=== PATIENT | male | born 1985 | race Caucasian/White ===

== ENCOUNTER 2017-12-11 11:26 | Emergency (ER) | payer MEDICARE ==
[~2017-12-11] VITALS: Ht 177.8 cm; Wt 70.3 kg
[~2017-12-11 11:26] MED LIST: ANTIBIOTICS; BENADRYL25 MG PO; Bactrim Ds Tab1 EACH PO; CIPR250 PO; CLIN150 PO; CRUTCH2 XX; CYCL10 PO; DIPATR PO; IBUP800 PO; INS70/30PN SC; INSDET100 SC; INSDET100 SQ; INSUASPI SC; INSULANI SC; LEVFLO500 PO; LEVO750 PO; MELO7.5 PO; Mobic15 MG PO; Norco 5-325 Ta1 EACH PO; PENVK500 PO; PREG150 PO; Pepcid20 MG PO; Percocet 10-321 EACH PO; REGULAR INSULIN SS; SULTRIDS PO; TRAM50 PO; TRAZ50 PO; ULTRA-LIGHT RO1 EACH MC; Veetids 500500 MG PO; Zofran Odt8 MG SL
== END 2017-12-11 13:15 | disposition home or self-care (01) ==
LOC: ER 11:26
DX: S93.401A Sprain of unspecified ligament of right ankle, initial encounter (principal); E11.9 Type 2 diabetes mellitus without complications; Z88.8 Allergy status to other drugs, medicaments and biological substances; Z88.1 Allergy status to other antibiotic agents; Z79.899 Other long term (current) drug therapy; Z79.4 Long term (current) use of insulin; Z87.891 Personal history of nicotine dependence; V80.010A Animal-rider injured by fall from or being thrown from horse in noncollision accident, initial encounter
CPT/HCPCS: 73564; 73610; 73630; 99283

== ENCOUNTER 2019-04-18 18:14 | Inpatient (IN) | payer MEDICARE ==
[~2019-04-18] VITALS: Ht 177.8 cm; Wt 73.8 kg
[2019-04-18 18:51] LABS: BASOPHILS ABSOLUTE AUTO 0.01 K/mm3 (0.00-0.23); BASOPHILS PERCENT AUTO 0 % (0-2); EOSINOPHILS ABSOLUTE AUTO 0.06 K/mm3 (0.00-0.68); EOSINOPHILS PERCENT AUTO 1 % (0-6); Hematocrit 42.4 % (37.0-53.0); Hemoglobin 14.3 g/dL (13.5-17.5); IMMATURE GRAN ABSOLUTE AUTO 0.03 K/mm3 (0.00-0.10); IMMATURE GRAN PERCENT AUTO 0 % (0-1); LYMPHOCYTES ABSOLUTE AUTO 2.01 K/mm3 (0.84-5.20); LYMPHOCYTES PERCENT AUTO 16 % (21-46); MONOCYTES ABSOLUTE AUTO 0.97 K/mm3 (0.16-1.47); MONOCYTES PERCENT AUTO 8 % (4-13); Mean Corpuscular HGB 29.5 pg (26.0-34.0); Mean Corpuscular HGB Conc 33.7 g/dL (31.5-36.5); Mean Corpuscular Volume 88 fL (80-100); Mean Platelet Volume 9.6 fL (9.1-12.4); NEUTROPHILS ABSOLUTE AUTO 9.64 K/mm3 (1.96-9.15); NEUTROPHILS PERCENT AUTO 76 % (41-73); Platelet Count 295 K/mm3 (150-400); RDW Coefficient Variation 13.3 % (11.7-14.2); RDW Standard Deviation 42.5 fL (35.1-46.3); Red Blood Cell Count 4.84 M/mm3 (4.30-5.90); White Blood Cell Count 12.72 K/mm3 (4.00-11.30)
[2019-04-18 19:13] LABS: Alanine Aminotransfer (ALT/SGP 25 U/L (12-78); Albumin, Blood 3.8 g/dL (3.4-5.0); Alk Phos 127 U/L (50-136); Anion Gap 6 mmol/L (6-16); Aspartate Aminotrans (AST/SGOT 11 U/L (12-37); Bilirubin, Total 0.4 mg/dL (0.1-1.0); Blood Urea Nitrogen 13 mg/dL (8-24); Bun/Creatinine Ratio 16.9 (12.0-20.0); CO2, Blood 30 mmol/L (21-32); Calcium, Blood 8.9 mg/dL (8.5-10.1); Chloride, Blood 102 mmol/L (98-108); Creatinine, Blood 0.77 mg/dL (0.60-1.20); Globulin, Blood 3.9 g/dL (2.2-4.0); Glomerular Filtration Rate >60 (60-); Glucose, Blood 49 mg/dL (70-99); Potassium, Blood 3.5 mmol/L (3.5-5.5); Sodium, Blood 138 mmol/L (136-145); Total Protein, Blood 7.7 g/dL (6.4-8.2)
[2019-04-18] MEDS ORDERED: GABA300 PO (21:57)
[2019-04-18] MEDS ORDERED: BUPRENORPHINE HC2 MG SL (21:59)
[2019-04-18] MEDS ORDERED: LEVEMIR FL100 UNIT/1 SC (22:00)
[2019-04-18] MEDS ORDERED: Humalog100 UNIT/3 SC (22:01)
[2019-04-19] MEDS ORDERED: ABAT250V (00:04)
[2019-04-19] MEDS ORDERED: Colace100 MG PO (00:04)
[2019-04-19 05:17] LABS: BASOPHILS PERCENT AUTO 0 % (0-2); EOSINOPHILS ABSOLUTE AUTO 0.16 K/mm3 (0.00-0.68); EOSINOPHILS PERCENT AUTO 2 % (0-6); Hematocrit 37.4 % (37.0-53.0); Hemoglobin 12.5 g/dL (13.5-17.5); IMMATURE GRAN ABSOLUTE AUTO 0.02 K/mm3 (0.00-0.10); IMMATURE GRAN PERCENT AUTO 0 % (0-1); LYMPHOCYTES ABSOLUTE AUTO 2.25 K/mm3 (0.84-5.20); LYMPHOCYTES PERCENT AUTO 27 % (21-46); MONOCYTES ABSOLUTE AUTO 0.77 K/mm3 (0.16-1.47); MONOCYTES PERCENT AUTO 9 % (4-13); Mean Corpuscular HGB 29.5 pg (26.0-34.0); Mean Corpuscular HGB Conc 33.4 g/dL (31.5-36.5); Mean Corpuscular Volume 88 fL (80-100); NEUTROPHILS ABSOLUTE AUTO 5.22 K/mm3 (1.96-9.15); NEUTROPHILS PERCENT AUTO 62 % (41-73); Platelet Count 258 K/mm3 (150-400); RDW Coefficient Variation 13.4 % (11.7-14.2); RDW Standard Deviation 43.5 fL (35.1-46.3); Red Blood Cell Count 4.24 M/mm3 (4.30-5.90); White Blood Cell Count 8.42 K/mm3 (4.00-11.30)
[2019-04-19 05:30] LABS: International Normalized Ratio 0.92; Prothrombin Time Results 9.8 Sec (9.7-11.5)
[2019-04-19 05:35] LABS: Anion Gap 5 mmol/L (6-16); Blood Urea Nitrogen 12 mg/dL (8-24); Bun/Creatinine Ratio 19.2 (12.0-20.0); CO2, Blood 28 mmol/L (21-32); Chloride, Blood 108 mmol/L (98-108); Creatinine, Blood 0.63 mg/dL (0.60-1.20); Glomerular Filtration Rate >60 (60-); Glucose, Blood 228 mg/dL (70-99); Magnesium, Blood 2.1 mg/dL (1.6-2.4); Potassium, Blood 3.8 mmol/L (3.5-5.5); Sodium, Blood 141 mmol/L (136-145)
--- NOTE | 2019-04-19 06:52 | NUR ---
SHIFT SUMMARY PT WAS A NEW ADMIT DURING THE NIGHT, ARRIVING ON THE FLOOR AT 2320. HE WAS ADMITTED FOR SEPSIS R/T CELLULITIS AND POSSIBLE ABSCESS. HE IS A&O X 4, AND INDEPENDENT IN THE ROOM. PT HAS BEEN NPO SINCE MIDNIGHT IN PREP FOR A SURGICAL I&D TODAY. HE DENIED ANY COMPLAINTS OF ACUTE PAIN, NAUSEA OR SOB AND SLEPT WELL SINCE ADMISSION. VITALS STABLE. NO OTHER ACUTE CHANGES IN PT CONDITION NOTED. WILL CONTINUE TO MONITOR AND TREAT PER EMAR UNTIL HAND OFF TO DAY SHIFT.
--- NOTE | 2019-04-19 13:00 | NUR ---
HAS BEEN NPO ALL DAY. AMBULATED OUTSIDE X1 TO USE HIS E-CIGARETTE. AMB THE HALLS X1. SHOWERED. HE WANTED 2 UNITS HUMALOG INSTEAD OF 3 UNITS FOR HIS NOONISH CBG. 2 UNITS GIVEN. TO SURGERY AT 1300 VIA [facility].
[2019-04-19 13:35] LABS: Vancomycin, Trough 10.9 ug/mL (5.0-10.0)
--- NOTE | 2019-04-19 13:35 | NUR ---
PT INTO SDS VIA GURNEY FROM 329. History, Chart, Medications and Allergies reviewed before start of procedure.Patient confirms NPO status and agrees with scheduled surgery. Lungs clear T/O to Auscultation.
--- NOTE | 2019-04-19 18:34 | NUR ---
HE RETURNED FROM SURGERY VIA [facility] AT 1535. HE IS A&O. HE IS AMBULATORY. HE HAS BILATERAL SMALL PAVAN DRAINS IN HIS SURGICAL WOUNDS. HE CONTINUES ON IVF'S AND IV ANTIBIOTICS. NO FEVER. POST OP VSS. HIS FRIEND BROUGHT HIM DINNER. LAST CBG OVER 300. ERIN FLYNN NOTIFIED. LANTUS INSULIN ORDERED SAME DOSE HE TAKE LEVEMIR AT HOME. DRESSINGS CHANGED X1 SO FAR OVER PAVAN DRAINS. OLD DRESSINGS WERE BLOODY. NO C/O PAIN.
--- NOTE | 2019-04-19 23:18 | NUR ---
ELEVATED BLOOD SUGAR AT HS CHECK AT 2127, PT'S BLOOD SUGAR WAS 482. THE HOSPITALIST JOHN SCHULER WAS CONSULTED. PT WAS GIVEN HIS NORMAL HOME DOSE OF 50 UNITS OF LANTUS, AND HIS SLIDING SCALE HUMALOG WAS INCREASED TO A HIGH SLIDING SCALE AND HE WAS MEDICATED PER THAT SCALE. WILL RECHECK BLOOD SUGAR 1 HR AFTER INSULIN COVERAGE.
--- NOTE | 2019-04-20 06:41 | NUR ---
SHIFT SUMMARY PT IS A 33 Y/O MALE, ADMITTED FOR SEPSIS R/T AN ABCESS AND CELLULITIS ON HIS THIGHS AND GENITALS. PT HAD A SURGICAL I&D YESTERDAY, WITH PAVAN DRAINS CURRENTLY IN PLACE. VITAL SIGNS STABLE. PT DENIED ANY COMPLAINTS OF PAIN, NAUSEA OR SOB. VITALS STABLE. NO OTHER ACUTE CHANGES IN PT CONDITION NOTED. WILL CONTINUE TO MONITOR AND TREAT PER EMAR UNTIL HAND OFF TO DAY SHIFT.
--- NOTE | 2019-04-20 10:05 | NUR ---
GLUCOSE OF 51 GAVE APPLEJUICE, FOLLOWED BY BREAKFAST. HELD INSULIN.
--- NOTE | 2019-04-20 10:07 | NUR ---
CALLED DR. JACKSON HOSPITALIST REQUESTED I CALL DR. JACKSON TO VERIFY PT COULD BE DISCHARGED TODAY. DR. JACKSON CONFIRMED THAT THE PT COULD BE DISCHARGED TODAY. PT NEEDS TO FOLLOW UP WITH DR. JACKSON IN ONE WEEK.
[2019-04-20] MEDS ORDERED: ACET325 PO (10:54)
[2019-04-20] MEDS ORDERED: AMOCLA875 PO (10:57)
[2019-04-20] MEDS ORDERED: LACT PO (10:58)
--- NOTE | 2019-04-20 12:22 | NUR ---
DISCHARGE NOTE IV'S DC'D WNL. PT GIVEN NOON INFUSION OF ANTIBIOTIC BEFORE DISCHARGE. PT PROVIDED WITH VERBAL AND HARDCOPY INSTRUCTIONS FOR DC RE: DIAGNOSES, SELF CARE OF DRAINS, DISCHARGE MEDICATIONS, FOLLOW UP APPOINTMENTS. PT DRESSED HIMSELF IN PERSONAL CLOTHES, GATHERED HIS PERSONAL POSSESSIONS. HE ATE LUNCH AND THEN INDEPENDENTLY AMBULATED TO HIS PERSONAL VEHICLE.
== END 2019-04-20 12:31 | disposition home or self-care (01) | DRG 872 ==
LOC: ER 18:14 → MEDS 22:15 → ENPENDDIS 04-20 10:31 → MEDS 04-20 12:31
PROVIDERS: Nurse Practitioner Acute Care; Physician Assistant; Surgery; ADMIT Internal Medicine
PROC: 0W9M30Z Drainage of Male Perineum with Drainage Device, Percutaneous Approach (ICD-10-PCS; principal; 2019-04-19 13:30)
DX: A41.9 Sepsis, unspecified organism (principal); L03.315 Cellulitis of perineum; E10.649 Type 1 diabetes mellitus with hypoglycemia without coma; E10.40 Type 1 diabetes mellitus with diabetic neuropathy, unspecified; Z79.4 Long term (current) use of insulin; Z88.8 Allergy status to other drugs, medicaments and biological substances; S34.102D Unspecified injury to L2 level of lumbar spinal cord, subsequent encounter
CPT/HCPCS: 36415; 72193; 80048; 80053; 80202; 82947; 83605; 83735; 85025; 85610; 96365-59; 96367-59; 99284-25; J1200; J1885; J2250; J2405; J2543; J2704; J3010; J3370; J3480; J7030; J7120; Q9967

== ENCOUNTER 2020-07-24 14:59 | Emergency (ER) | payer MEDICARE, OTHER ==
[~2020-07-24] VITALS: Ht 177.8 cm; Wt 74.8 kg
[~2020-07-24 14:59] MED LIST changes: +ABAT250V; +ACET325 PO; +AMOCLA875 PO; +BUPRENORPHINE HC2 MG SL; +Colace100 MG PO; +GABA300 PO; +Humalog100 UNIT/3 SC; +LACT PO; +LEVEMIR FL100 UNIT/1 SC
== END 2020-07-24 17:02 | disposition home or self-care (01) ==
LOC: ER 14:59
DX: S20.212A Contusion of left front wall of thorax, initial encounter (principal); S49.92XA Unspecified injury of left shoulder and upper arm, initial encounter; E11.9 Type 2 diabetes mellitus without complications; F17.290 Nicotine dependence, other tobacco product, uncomplicated; Z88.1 Allergy status to other antibiotic agents; Z79.4 Long term (current) use of insulin; Z79.899 Other long term (current) drug therapy; V80.010A Animal-rider injured by fall from or being thrown from horse in noncollision accident, initial encounter
CPT/HCPCS: 71101; 73030; 99283-25

== ENCOUNTER 2021-05-22 12:04 | Emergency (ER) | payer MEDICARE, OTHER ==
[~2021-05-22] VITALS: Ht 177.8 cm; Wt 74.8 kg
[2021-05-22 13:49] LABS: Hematocrit 38.1 % (37.0-53.0); Mean Corpuscular HGB 31.4 pg (26.0-34.0); Mean Corpuscular HGB Conc 34.1 g/dL (31.5-36.5); Mean Corpuscular Volume 92 fL (80-100); Mean Platelet Volume 9.6 fL (9.1-12.4); Platelet Count 332 K/mm3 (150-400); RDW Coefficient Variation 12.2 % (11.7-14.2); RDW Standard Deviation 41.3 fL (35.1-46.3); Red Blood Cell Count 4.14 M/mm3 (4.30-5.90); White Blood Cell Count 4.67 K/mm3 (4.00-11.30)
[2021-05-22 14:10] LABS: Alanine Aminotransfer (ALT/SGP 33 U/L (12-78); Albumin, Blood 2.7 g/dL (3.4-5.0); Albumin/Globulin Ratio 0.7 (0.8-1.8); Alk Phos 116 U/L (50-136); Anion Gap 7 mmol/L (6-16); Aspartate Aminotrans (AST/SGOT 18 U/L (12-37); Bilirubin, Total 0.2 mg/dL (0.1-1.0); Blood Urea Nitrogen 12 mg/dL (8-24); Bun/Creatinine Ratio 17.7 (12.0-20.0); CO2, Blood 28 mmol/L (21-32); Calcium, Blood 8.1 mg/dL (8.5-10.1); Chloride, Blood 101 mmol/L (98-108); Creatinine, Blood 0.68 mg/dL (0.60-1.20); Globulin, Blood 4.1 g/dL (2.2-4.0); Glomerular Filtration Rate >60 (60-); Glucose, Blood 450 mg/dL (70-99); Potassium, Blood 3.9 mmol/L (3.5-5.5); Sodium, Blood 136 mmol/L (136-145); Total Protein, Blood 6.8 g/dL (6.4-8.2)
[2021-05-22 14:11] LABS: BAND PERCENT MAN 2 % (0-8); BASOPHILS ABSOLUTE MAN 0.09 K/mm3 (0.00-0.23); BASOPHILS PERCENT MAN 2 % (0-2); EOSINOPHILS ABSOLUTE MAN 0.04 K/mm3 (0.00-0.68); EOSINOPHILS PERCENT MAN 1 % (0-6); LYMPHOCYTES % ATYPICAL MANUAL 1 % (0-0); LYMPHOCYTES ABSOLUTE MAN 0.98 K/mm3 (0.84-5.20); LYMPHOCYTES PERCENT MAN 20 % (21-46); MONOCYTES ABSOLUTE MAN 0.32 K/mm3 (0.16-1.47); MONOCYTES PERCENT MAN 7 % (4-13); NEUTROPHILS ABSOLUTE MAN 3.22 K/mm3 (1.96-9.15); SEG NEUTROPHILS PERCENT MAN 67 % (41-73); TOTAL CELLS COUNTED 100
[2021-05-22] MEDS ORDERED: Cleocin HCl150 MG PO (14:20)
== END 2021-05-22 14:46 | disposition home or self-care (01) ==
LOC: ER 12:04
PROVIDERS: Physician Assistant
DX: L02.31 Cutaneous abscess of buttock (principal); L03.317 Cellulitis of buttock; L89.329 Pressure ulcer of left buttock, unspecified stage; E11.621 Type 2 diabetes mellitus with foot ulcer; E11.40 Type 2 diabetes mellitus with diabetic neuropathy, unspecified; L97.519 Non-pressure chronic ulcer of other part of right foot with unspecified severity; Z79.4 Long term (current) use of insulin; Z79.899 Other long term (current) drug therapy; Z88.1 Allergy status to other antibiotic agents
CPT/HCPCS: 36415; 80053; 85025; 96365; 99283-25

== ENCOUNTER 2021-10-28 17:45 | Inpatient (IN) | payer MEDICARE, OTHER ==
[~2021-10-28] VITALS: Ht 177.8 cm; Wt 74.1 kg
[~2021-10-28 17:45] MED LIST changes: +BUTRANS1 EAC6 TD; +CEFD300 PO; +Cleocin HCl150 MG PO; +DULO60 PO
[2021-10-28 18:58] LABS: BASOPHILS ABSOLUTE AUTO 0.04 K/mm3 (0.00-0.23); BASOPHILS PERCENT AUTO 0 % (0-2); EOSINOPHILS PERCENT AUTO 2 % (0-6); Hematocrit 32.1 % (37.0-53.0); IMMATURE GRAN ABSOLUTE AUTO 0.04 K/mm3 (0.00-0.10); IMMATURE GRAN PERCENT AUTO 0 % (0-1); LYMPHOCYTES ABSOLUTE AUTO 2.22 K/mm3 (0.84-5.20); LYMPHOCYTES PERCENT AUTO 22 % (21-46); MONOCYTES ABSOLUTE AUTO 0.88 K/mm3 (0.16-1.47); MONOCYTES PERCENT AUTO 9 % (4-13); Mean Corpuscular HGB 28.1 pg (26.0-34.0); Mean Corpuscular HGB Conc 31.2 g/dL (31.5-36.5); Mean Corpuscular Volume 90 fL (80-100); Mean Platelet Volume 8.9 fL (9.1-12.4); NEUTROPHILS PERCENT AUTO 66 % (41-73); Platelet Count 645 K/mm3 (150-400); RDW Coefficient Variation 13.8 % (11.7-14.2); RDW Standard Deviation 45.7 fL (35.1-46.3); Red Blood Cell Count 3.56 M/mm3 (4.30-5.90); White Blood Cell Count 9.98 K/mm3 (4.00-11.30)
[2021-10-28 19:08] LABS: Alanine Aminotransfer (ALT/SGP 17 U/L (12-78); Albumin, Blood 2.3 g/dL (3.4-5.0); Albumin/Globulin Ratio 0.6 (0.8-1.8); Alk Phos 124 U/L (50-136); Anion Gap 7 mmol/L (6-16); Aspartate Aminotrans (AST/SGOT 9 U/L (12-37); Bilirubin, Total 0.3 mg/dL (0.1-1.0); Blood Urea Nitrogen 7 mg/dL (8-24); Bun/Creatinine Ratio 9.9 (12.0-20.0); CO2, Blood 29 mmol/L (21-32); Calcium, Blood 8.3 mg/dL (8.5-10.1); Chloride, Blood 103 mmol/L (98-108); Creatinine, Blood 0.71 mg/dL (0.60-1.20); Glomerular Filtration Rate >60 (60-); Glucose, Blood 317 mg/dL (70-99); Potassium, Blood 4.6 mmol/L (3.5-5.5); Sodium, Blood 139 mmol/L (136-145); Total Protein, Blood 6.3 g/dL (6.4-8.2)
[2021-10-29 05:22] LABS: BASOPHILS ABSOLUTE AUTO 0.05 K/mm3 (0.00-0.23); BASOPHILS PERCENT AUTO 1 % (0-2); EOSINOPHILS ABSOLUTE AUTO 0.27 K/mm3 (0.00-0.68); EOSINOPHILS PERCENT AUTO 4 % (0-6); Hematocrit 30.2 % (37.0-53.0); Hemoglobin 9.7 g/dL (13.5-17.5); IMMATURE GRAN ABSOLUTE AUTO 0.02 K/mm3 (0.00-0.10); IMMATURE GRAN PERCENT AUTO 0 % (0-1); LYMPHOCYTES PERCENT AUTO 31 % (21-46); MONOCYTES ABSOLUTE AUTO 0.72 K/mm3 (0.16-1.47); MONOCYTES PERCENT AUTO 9 % (4-13); Mean Corpuscular HGB 28.8 pg (26.0-34.0); Mean Corpuscular HGB Conc 32.1 g/dL (31.5-36.5); Mean Corpuscular Volume 90 fL (80-100); Mean Platelet Volume 9.1 fL (9.1-12.4); NEUTROPHILS ABSOLUTE AUTO 4.32 K/mm3 (1.96-9.15); NEUTROPHILS PERCENT AUTO 56 % (41-73); Platelet Count 575 K/mm3 (150-400); RDW Coefficient Variation 13.8 % (11.7-14.2); RDW Standard Deviation 45.2 fL (35.1-46.3); Red Blood Cell Count 3.37 M/mm3 (4.30-5.90); White Blood Cell Count 7.78 K/mm3 (4.00-11.30)
[2021-10-29 05:44] LABS: Anion Gap 6 mmol/L (6-16); Blood Urea Nitrogen 6 mg/dL (8-24); Bun/Creatinine Ratio 9.2 (12.0-20.0); CO2, Blood 28 mmol/L (21-32); Calcium, Blood 8.3 mg/dL (8.5-10.1); Chloride, Blood 108 mmol/L (98-108); Creatinine, Blood 0.65 mg/dL (0.60-1.20); Glomerular Filtration Rate >60 (60-); Glucose, Blood 123 mg/dL (70-99); Potassium, Blood 4.2 mmol/L (3.5-5.5); Sodium, Blood 142 mmol/L (136-145)
--- NOTE | 2021-10-29 06:21 | NUR ---
SUMMARY PT ARRIVED TO FLOOR IN NO DISTRESS. PT RIGHT FOOT SWOLLEN AND PAINFUL TO TOUCH. PT TX PER EMAR WITH RELIEF. PT HAS BEEN ABLE TO SLEEP DURING NIGHT. PT CURRENTLY SLEEPING AND IN NO DISTRESS. CALL LIGHT IN REACH.
--- NOTE | 2021-10-29 11:15 | NUR ---
Spiritual Care Visit Pt. was resting but responded to my greeting.Pt. welcomed my visit. Established rapport with pt. Pt. was unsettled and displayed some anxiety about the prospect of losing some toes or part of his foot. Listened empathetically. Provided a calming influence. Pt. self identified as a man of giovanny. Provided spiritual direction, and prayed with pt. Pt. displayed evidence of reduced stress. Pt. verbalized gratitude for the visit.
--- NOTE | 2021-10-29 15:32 | NUR ---
PT RECENTLY TO [facility] BY ALEX. DR WILEY AND DR CHURCH DISCUSSED PT'S CBG. SEE EMAR. History, Chart, Medications and Allergies reviewed before start of procedure. Lungs clear T/O to Auscultation. Patient confirms NPO status and agrees with scheduled surgery. Pre-Op teaching done. Pt verbalizes understanding.
--- NOTE | 2021-10-29 16:10 | NUR ---
10/29/21 1610 Yvonne Cabrales PT ON SCHEDULED ABX
--- NOTE | 2021-10-29 16:35 | NUR ---
SHIFT SUMMARY POD0 RLE I&D, PT CURRENTLY IN OR AT THIS TIME, PAIN TOLERABLE PRIOR TO GOING TO OR, SELF CATHS TO VOID, NO ACUTE EVENTS THIS SHIFT. WILL CTM ONCE BACK FROM OR AND REPORT TO JOSE CARLOS ROBBINS.
--- NOTE | 2021-10-29 18:12 | NUR ---
SHIFT SUMMARY PT RETURNED FROM O.R. FOLLOWING AMPUTATON OF 5TH/PINKY TOE, DRESSING CDI, ELEVATED. PT SEFERINO PO ADA DIET. WILL REPORT TO ONCOMING JOSE CARLOS RN.
[2021-10-30 00:44] LABS: Vancomycin, Trough 17.8 ug/mL (5.0-10.0)
--- NOTE | 2021-10-30 03:49 | NUR ---
ALERT AND ORIENTED X4. TAKING PO WELL. PAIN MED WAS GIVEN ONCE. VOIDING. WOUND VAC IS FUNCTIONING. VSS. ABLE TO MOVE HIS TOES AND FOOT.
[2021-10-30 07:24] LABS: Hematocrit 32.4 % (37.0-53.0); Hemoglobin 10.3 g/dL (13.5-17.5); Mean Corpuscular HGB 28.8 pg (26.0-34.0); Mean Corpuscular HGB Conc 31.8 g/dL (31.5-36.5); Mean Corpuscular Volume 91 fL (80-100); Mean Platelet Volume 8.8 fL (9.1-12.4); Platelet Count 602 K/mm3 (150-400); RDW Coefficient Variation 13.9 % (11.7-14.2); RDW Standard Deviation 46.5 fL (35.1-46.3); Red Blood Cell Count 3.58 M/mm3 (4.30-5.90)
[2021-10-30 07:34] LABS: Anion Gap 4 mmol/L (6-16); Blood Urea Nitrogen 15 mg/dL (8-24); Bun/Creatinine Ratio 16.7 (12.0-20.0); CO2, Blood 27 mmol/L (21-32); Calcium, Blood 8.1 mg/dL (8.5-10.1); Chloride, Blood 106 mmol/L (98-108); Glomerular Filtration Rate >60 (60-); Glucose, Blood 292 mg/dL (70-99); Potassium, Blood 4.2 mmol/L (3.5-5.5); Sodium, Blood 137 mmol/L (136-145)
[2021-10-30 07:46] LABS: BAND PERCENT MAN 1 % (0-8); BASOPHILS PERCENT MAN 0 % (0-2); EOSINOPHILS ABSOLUTE MAN 0.41 K/mm3 (0.00-0.68); EOSINOPHILS PERCENT MAN 5 % (0-6); LYMPHOCYTES ABSOLUTE MAN 0.91 K/mm3 (0.84-5.20); LYMPHOCYTES PERCENT MAN 11 % (21-46); MONOCYTES ABSOLUTE MAN 0.74 K/mm3 (0.16-1.47); MONOCYTES PERCENT MAN 9 % (4-13); NEUTROPHILS ABSOLUTE MAN 6.22 K/mm3 (1.96-9.15); SEG NEUTROPHILS PERCENT MAN 74 % (41-73); TOTAL CELLS COUNTED 100
--- NOTE | 2021-10-30 11:56 | NUR ---
Spiritual Care Visit. Pt. was resting in bed, but responded to my greeting. Pt. was unsettled by inconsistant pain, and dissapointment of a neccessary amputatation. Listened empathetically. Provided spiritual support and comfort. Pt. displayed evidence of acceptance of the procedure, and verbalized gratitude for the visit. <pt. had blood sugar tested during my visit>. Prayed with Pt.
[2021-10-30 12:04] LABS: Influenza A, PCR NEGATIVE (NEGATIVE); Influenza B, PCR NEGATIVE (NEGATIVE); Resp Syncytial Virus, PCR NEGATIVE (NEGATIVE); SARS-Cov-2 (COVID-19) PCR, MMC NEGATIVE (NEGATIVE)
--- NOTE | 2021-10-30 15:58 | NUR ---
SHIFT SUMMARY PT A&OX4, VSS/RA, CBGS COV PER EMAR, MEDIUM SLIDING SCALE ACHS. POD1 AMP 5TH TOE, GAUZE/SABINA/WOUND VAC WNL, ELEVATED. 20GLFA, INFUSING ABX PER EMAR. SEFERINO PO, ADA DIET. VOIDING/SELF STRAIGHT CATHS PRN; BM TODAY. PAIN MANAGED WITH TORADOL & TYLENOL; BUTRANS PATCH LEFT SHOULDER. PT/OT WORKED WITH PT THIS SHIFT, ABLE TO TRANSFER TO CHAIR/BSC. PLAN FOR DR WILEY TO CHANGE WOUND VAC DRESSING TUESDAY. WILL CTM UNTIL REPORT PROVIDED TO NOC RN.
[2021-10-31 04:12] LABS: BASOPHILS ABSOLUTE AUTO 0.03 K/mm3 (0.00-0.23); BASOPHILS PERCENT AUTO 1 % (0-2); EOSINOPHILS ABSOLUTE AUTO 0.23 K/mm3 (0.00-0.68); EOSINOPHILS PERCENT AUTO 4 % (0-6); Hemoglobin 9.6 g/dL (13.5-17.5); IMMATURE GRAN ABSOLUTE AUTO 0.02 K/mm3 (0.00-0.10); IMMATURE GRAN PERCENT AUTO 0 % (0-1); LYMPHOCYTES ABSOLUTE AUTO 2.49 K/mm3 (0.84-5.20); LYMPHOCYTES PERCENT AUTO 41 % (21-46); MONOCYTES ABSOLUTE AUTO 0.56 K/mm3 (0.16-1.47); MONOCYTES PERCENT AUTO 9 % (4-13); Mean Corpuscular HGB 28.2 pg (26.0-34.0); Mean Corpuscular Volume 88 fL (80-100); Mean Platelet Volume 8.6 fL (9.1-12.4); NEUTROPHILS ABSOLUTE AUTO 2.81 K/mm3 (1.96-9.15); NEUTROPHILS PERCENT AUTO 46 % (41-73); Platelet Count 557 K/mm3 (150-400); RDW Coefficient Variation 13.7 % (11.7-14.2); RDW Standard Deviation 44.3 fL (35.1-46.3); White Blood Cell Count 6.14 K/mm3 (4.00-11.30)
[2021-10-31 04:38] LABS: Anion Gap 5 mmol/L (6-16); Blood Urea Nitrogen 14 mg/dL (8-24); Bun/Creatinine Ratio 18.7 (12.0-20.0); CO2, Blood 29 mmol/L (21-32); Calcium, Blood 8.5 mg/dL (8.5-10.1); Chloride, Blood 108 mmol/L (98-108); Creatinine, Blood 0.75 mg/dL (0.60-1.20); Glomerular Filtration Rate >60 (60-); Glucose, Blood 192 mg/dL (70-99); Potassium, Blood 3.9 mmol/L (3.5-5.5); Sodium, Blood 142 mmol/L (136-145)
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
--- NOTE | 2021-10-31 19:10 | NUR ---
SHIFT SUMMARY PT IS POD#2 FROM R 5TH TOE AMPUTATION. PAIN MANAGED WITH TYLENOL AND TORADOL THIS SHIFT. PT'S BLOOD GLUCOSE HAS BEEN ELEVATED BUT HE IS NOW GETTING HIS HOME INSULIN. PT IS A 1 PERSON ASSIST FOR STAND PIVOT TRANSFERS. WOUND VAC WAS CHANGED TODAY BY DR. WILEY. WILL CONTINUE TO MONITOR UNTIL REPORT TO JOSE CARLOS ROBBINS.
--- NOTE | 2021-10-31 21:25 | NUR ---
MESSAGE LEFT TO RASHAD LOPEZ RE: PT'S REQUEST OF NICONTINE PATCH.
[2021-11-01 04:33] LABS: BASOPHILS ABSOLUTE AUTO 0.03 K/mm3 (0.00-0.23); BASOPHILS PERCENT AUTO 0 % (0-2); EOSINOPHILS ABSOLUTE AUTO 0.26 K/mm3 (0.00-0.68); EOSINOPHILS PERCENT AUTO 4 % (0-6); Hematocrit 31.3 % (37.0-53.0); Hemoglobin 9.8 g/dL (13.5-17.5); IMMATURE GRAN ABSOLUTE AUTO 0.06 K/mm3 (0.00-0.10); IMMATURE GRAN PERCENT AUTO 1 % (0-1); LYMPHOCYTES ABSOLUTE AUTO 2.68 K/mm3 (0.84-5.20); LYMPHOCYTES PERCENT AUTO 39 % (21-46); MONOCYTES PERCENT AUTO 7 % (4-13); Mean Corpuscular HGB 28.2 pg (26.0-34.0); Mean Corpuscular HGB Conc 31.3 g/dL (31.5-36.5); Mean Corpuscular Volume 90 fL (80-100); Mean Platelet Volume 8.7 fL (9.1-12.4); NEUTROPHILS ABSOLUTE AUTO 3.41 K/mm3 (1.96-9.15); NEUTROPHILS PERCENT AUTO 49 % (41-73); Platelet Count 523 K/mm3 (150-400); RDW Standard Deviation 45.9 fL (35.1-46.3); Red Blood Cell Count 3.48 M/mm3 (4.30-5.90); White Blood Cell Count 6.94 K/mm3 (4.00-11.30)
[2021-11-01 05:00] LABS: Anion Gap 5 mmol/L (6-16); Blood Urea Nitrogen 17 mg/dL (8-24); Bun/Creatinine Ratio 22.2 (12.0-20.0); CO2, Blood 29 mmol/L (21-32); Calcium, Blood 8.5 mg/dL (8.5-10.1); Chloride, Blood 104 mmol/L (98-108); Creatinine, Blood 0.77 mg/dL (0.60-1.20); Glomerular Filtration Rate >60 (60-); Glucose, Blood 305 mg/dL (70-99); Potassium, Blood 4.1 mmol/L (3.5-5.5); Sodium, Blood 138 mmol/L (136-145)
--- NOTE | 2021-11-01 05:40 | NUR ---
SHIFT SUMMARY: PT. AOX4, COMPLAINTS OF PAIN RIGHT FOOT ADDRESSED,SEE EMAR. WOUND VAC TO R FOOT NOTED WITH SMALL AIRLEAK, PASSED AIRLEAK TEST, WILL REPORT TO KYLE RN. PT. SLEPT WELL, NO NEW UNUSUALITIES NOTED, WILL CONTINUE TO MONITOR.
--- NOTE | 2021-11-01 17:27 | NUR ---
SHIFT SUMMARY PT IS POD#3 FROM R 5TH TOE AMPUTATION. PAIN MANAGED WITH TYLENOL AND TORADOL. PT'S BLOOD SUGARS ARE ELEVATED, HE IS SNACKING BETWEEN MEALS, EDUCATION HAS BEEN PROVIDED. WOUND VAC IN PLACE AND HOLDING SUCTION. PT HAS BEEN OOB TO THE W/C AND WENT OUTSIDE TODAY. VSS. WILL MONITOR UNTIL REPORT TO JOSE CARLOS ROBBINS.
--- NOTE | 2021-11-02 04:31 | NUR ---
SHIFT SUMMARY: PT. AOX4, INDEPENDENT IN ROOM, ADVISED TO CALL FOR ANY NEED, CLWR, PT. VERBALIZED UNDERSTANDING. HAD 2 SOFT BMs WITHIN THE SHIFT, REFUSED TO TAKE STOOL SOFTENERS.SLEPT WELL. NO S/S OF RESP./CV DISTRESS & NO NEW UNUSUALITIES NOTED. WILL CONTINUE TO MONITOR.
--- NOTE | 2021-11-02 04:34 | NUR ---
PLEASE DISREGARD PREVIOUS NOTE, DOES NOT REFER TO THIS PT.
--- NOTE | 2021-11-02 04:35 | NUR ---
SHIFT SUMMARY: PT.AOX4, INDEPENDENT IN ROOM USING W/C, REMINDED TOP CALL FOR ANY HELP & DON'T FALL, PT. VERBALIZED UNDERSTANDING. 0200 BLOOD GLUCOSE OF 140, SNACKS GIVEN. PT. WENT OUTSIDE OF THE HOSP. BUILDING BY HIMSELF ON A W/C TO GET SOME FRESH AIR WITHOUT PROBLEMS. NO NEW UNUSUALITIES NOTED.WILL CONTINUE TO MONITOR.
[2021-11-02 08:22] LABS: BASOPHILS ABSOLUTE AUTO 0.02 K/mm3 (0.00-0.23); BASOPHILS PERCENT AUTO 0 % (0-2); EOSINOPHILS ABSOLUTE AUTO 0.39 K/mm3 (0.00-0.68); EOSINOPHILS PERCENT AUTO 5 % (0-6); Hematocrit 31.5 % (37.0-53.0); Hemoglobin 9.8 g/dL (13.5-17.5); IMMATURE GRAN ABSOLUTE AUTO 0.07 K/mm3 (0.00-0.10); IMMATURE GRAN PERCENT AUTO 1 % (0-1); LYMPHOCYTES ABSOLUTE AUTO 2.72 K/mm3 (0.84-5.20); LYMPHOCYTES PERCENT AUTO 38 % (21-46); MONOCYTES ABSOLUTE AUTO 0.62 K/mm3 (0.16-1.47); MONOCYTES PERCENT AUTO 9 % (4-13); Mean Corpuscular HGB 28.2 pg (26.0-34.0); Mean Corpuscular HGB Conc 31.1 g/dL (31.5-36.5); Mean Corpuscular Volume 91 fL (80-100); Mean Platelet Volume 8.7 fL (9.1-12.4); NEUTROPHILS ABSOLUTE AUTO 3.34 K/mm3 (1.96-9.15); NEUTROPHILS PERCENT AUTO 47 % (41-73); Platelet Count 516 K/mm3 (150-400); RDW Coefficient Variation 14.2 % (11.7-14.2); RDW Standard Deviation 46.1 fL (35.1-46.3); Red Blood Cell Count 3.48 M/mm3 (4.30-5.90); White Blood Cell Count 7.16 K/mm3 (4.00-11.30)
--- NOTE | 2021-11-02 16:49 | NUR ---
Received referral from nurse career development associate (Agata Fried) on 11/02/2021. Patient is to discharge 11/03/2021 with orders for home health and elected [facility]. Met with patient to further discuss the above. Patient is agreeable to the above. Discussed homebound status definition with patient. Patient verbalized understanding. Discussed what home health is vs what it is not (in home caregivers/housekeeping). Patient verbalized understanding. Discussed the next steps in the process of an initial assessment to determine frequency of visits. Again patient verbalized understanding. Offered a chance for patient to ask questions regarding the above of which there were none. At this time patient has no discharge orders entered. Will continue to monitor and follow for discharge. Zofia Rothman Referral Liaison
--- NOTE | 2021-11-02 17:17 | NUR ---
SHIFT SUMMARY PT A&OX4, VSS/RA, CBGS COV IMPROVED WITH LSS/CARB CT AND LONG ACTING BID. SEFERINO PO, VOIDING WELL/SELF STRAIGHT CATH, USING WC TO GET AROUND ROOM/HOSPITAL, PAIN MANAGED WITH PAIN PATCH/TYLENOL/TORADOL/NEURONTIN. POD4 R 5TH TOE AMP, WOUND VAC WNL/NWB; DRESSING CHANGED TODAY BY SURGEON. WILL REPORT TO ONCOMING NOC RN.
--- NOTE | 2021-11-03 04:27 | NUR ---
SHIFT SUMMARY: PT. AOX4, INDEPENDENT IN MOVING AROUND ON A W/C. COMPLAINTS OF ITCHINESS TO LEFT HAND & R FOOT PAST MIDNIGHT, BENADRYL IV 25 MG GIVEN. COMPLAINTS OF R FOOT PAIN ADDRESSED WITH PAIN MEDICATION, SEE EMAR. NO OTHER UNUSUALITIES NOTED, PT. SLEPT WELL.
--- NOTE | 2021-11-03 11:55 | NUR ---
Pt. was sitting up in wheelchair. Pt. welcomed my visit. Re-established rapport and Pt. gave an update on his progress. While present, patients doctor came. Pt. will be discharged today. Provided anticipatory guidance for his home recovery . Pt. displayed evidence of increased courage and resolve. Prayed with pt. Pt. verbalized gratitude for the spiritual care he has received.
[2021-11-03] MEDS ORDERED: CIPR500 PO (12:42)
[2021-11-03] MEDS ORDERED: VISBIOME 112.51 EACH PO (12:44)
--- NOTE | 2021-11-03 13:57 | NUR ---
Patient now has discharge orders entered. Gathered all supporting documentation for referral (face sheet, face to face, med list, H&P, and most recent PT assessment) and sent to [facility] for review. No further interventions required. Zofia Rothman Referral Liaison
--- NOTE | 2021-11-03 14:17 | NUR ---
DISCHARGE SUMMARY PT A&OX4, VSS/RA, VOIDING-SELF CATH, SELF TRANSFER TO /BED/BSC, SEFERINO PO, PAIN MANAGED, HOME WOUND VAC PLACED. LEFT FLOOR VIA WC WITH RN, TO GO HOME WITH MOM, WITH ALL PERSONAL POSSESSIONS INCLUDING DC PACKET AND WOUND VAC SUPPLIES. DC INSTRUCTIONS PROVIDED. PT REP UNDERSTANDING THOSE INSTRUCTIONS INCLUDING NWB RLE, WOUND VAC, FU WITH DR WILEY 1 WEEK(TAKE WOUND VAC DRESSING CHANGE), HH WILL CONTACT AND DO DRESSING CHANGES, ABX X 2 WKS BID, SCRIPTS AT [facility], WC AT [facility] TO PICKUP. IV DC'D.
== END 2021-11-03 13:55 | disposition home or self-care (01) | DRG 239 ==
LOC: ER 17:45 → SURS 23:45
PROVIDERS: Family Medicine; Physician Assistant; Podiatrist Foot & Ankle Surgery; Student in an Organized Health Care Education/Training Program; ADMIT Family Medicine
PROC: 0Y6M0ZF Detachment at Right Foot, Partial 5th Ray, Open Approach (ICD-10-PCS; principal; 2021-10-29 15:30)
PROC: 3E03329 Introduction of Other Anti-infective into Peripheral Vein, Percutaneous Approach (ICD-10-PCS; 2021-10-29 15:30)
DX: E11.52 Type 2 diabetes mellitus with diabetic peripheral angiopathy with gangrene (principal); A48.0 Gas gangrene; R65.10 Systemic inflammatory response syndrome (SIRS) of non-infectious origin without acute organ dysfunction; F11.20 Opioid dependence, uncomplicated; E10.621 Type 1 diabetes mellitus with foot ulcer; L97.519 Non-pressure chronic ulcer of other part of right foot with unspecified severity; Z20.822 Contact with and (suspected) exposure to COVID-19; Z88.1 Allergy status to other antibiotic agents; Z79.899 Other long term (current) drug therapy; Z79.4 Long term (current) use of insulin
CPT/HCPCS: 0241U; 36415; 73630; 80048; 80053; 80202; 82947; 83605; 85007; 85025; 85027; 87040; 87070; 87071; 87075; 87076; 87077; 87185; 87186; 87205; 88305; 88311; 90686; 96365; 97110; 97162; 97166; 97530; 99285-25; A9270; J0295; J0744; J1200; J1815; J1885; J2405; J2543; J2704; J3010; J3370; J7030; J7050; J7120

== ENCOUNTER 2023-05-18 10:30 | Emergency (ER) | payer OTHER ==
[~2023-05-18] VITALS: Ht 177.8 cm; Wt 77.1 kg
[~2023-05-18 10:30] MED LIST changes: +CIPR500 PO; +DOCU100 PO; +MIRALAX17 GM PO; +NICO21TP TOP; +VISBIOME 112.51 EACH PO
[2023-05-18 11:17] LABS: Source, Urine Straight Cath
[2023-05-18 11:27] LABS: Appearance, Urine Cloudy (Clear); Bilirubin, Urine Neg (Neg); Blood, Urine 4+ (Neg); Color, Urine Yellow (P-Yellow); Glucose Qualitative, Urine 3+ (Neg); Ketones, Urine Neg (Neg); Leukocyte Esterase, Urine 3+ (Neg); Nitrite, Urine Pos (Neg); Protein, Urine 3+ (Neg); Specific Gravity, Urine 1.015 (1.003-1.022); Urobilinogen, Urine NORM (Normal)
[2023-05-18 11:44] LABS: Bacteria Many /hpf; Squamous Epithelial Cells Rare /hpf (Few); White Blood Cells, Urine TNTC /hpf (0-5)
[2023-05-18] MEDS ORDERED: CEPHALEXIN500 MG PO (12:19)
[2023-05-18 12:34] VITALS: BP 145/96
== END 2023-05-18 12:35 | disposition home or self-care (01) ==
LOC: ER 10:30
PROVIDERS: Student in an Organized Health Care Education/Training Program
DX: N30.90 Cystitis, unspecified without hematuria (principal); L03.113 Cellulitis of right upper limb; L03.116 Cellulitis of left lower limb; L03.115 Cellulitis of right lower limb; V80.010A Animal-rider injured by fall from or being thrown from horse in noncollision accident, initial encounter; E10.9 Type 1 diabetes mellitus without complications; Z87.891 Personal history of nicotine dependence
CPT/HCPCS: 72100; 72170; 81001; 87077; 87086; 87186; 99283-25

== ENCOUNTER → 2023-05-26 | Outpatient (CLI) | payer OTHER ==
[~2023-05-26] MED LIST changes: +CEPHALEXIN500 MG PO
== END ==
LOC: LAB SHORT 12:57 → LAB 12:57
DX: N39.0 Urinary tract infection, site not specified (principal)
CPT/HCPCS: 87086

== ENCOUNTER 2023-06-04 18:37 | Emergency (ER) | payer OTHER ==
[~2023-06-04] VITALS: Ht 177.8 cm; Wt 77.1 kg
[2023-06-04 19:18] VITALS: BP 129/86
== END 2023-06-04 20:38 | disposition home or self-care (01) ==
LOC: ER 18:37
DX: S80.01XA Contusion of right knee, initial encounter (principal); E11.9 Type 2 diabetes mellitus without complications; F17.290 Nicotine dependence, other tobacco product, uncomplicated; Z88.1 Allergy status to other antibiotic agents; Z79.4 Long term (current) use of insulin; Z79.899 Other long term (current) drug therapy; W55.12XA Struck by horse, initial encounter
CPT/HCPCS: 73562-RT; 99283-25

== ENCOUNTER 2023-06-05 22:51 | Emergency (ER) | payer OTHER ==
[~2023-06-05] VITALS: Ht 177.8 cm; Wt 77.1 kg
[2023-06-05 23:20] VITALS: BP 153/95
[2023-06-06] MEDS ORDERED: Ibuprofen600 MG PO (01:41)
[2023-06-06] MEDS ORDERED: ACET500 PO (01:41)
== END 2023-06-06 02:02 | disposition home or self-care (01) ==
LOC: ER 22:51
DX: S80.01XA Contusion of right knee, initial encounter (principal); S30.0XXA Contusion of lower back and pelvis, initial encounter; S70.11XA Contusion of right thigh, initial encounter; E11.9 Type 2 diabetes mellitus without complications; F17.290 Nicotine dependence, other tobacco product, uncomplicated; Z88.8 Allergy status to other drugs, medicaments and biological substances; Z79.4 Long term (current) use of insulin; W55.12XA Struck by horse, initial encounter
CPT/HCPCS: 73502; 93971; 99284-25; A9270

== ENCOUNTER 2023-11-20 14:50 | Emergency (ER) | payer OTHER ==
[~2023-11-20] VITALS: Ht 177.8 cm; Wt 81.7 kg
[~2023-11-20 14:50] MED LIST changes: +ACET500 PO; +Ibuprofen600 MG PO
[2023-11-20] MEDS ORDERED: SEMGLEE (Y100 UNIT/2 (16:04)
[2023-11-20] MEDS ORDERED: IBU600 MG PO (16:05)
[2023-11-20] MEDS ORDERED: INSULIN PUMP (16:06)
[2023-11-20 17:06] VITALS: BP 149/91
== END 2023-11-20 17:09 | disposition home or self-care (01) ==
LOC: ER 14:50
DX: S02.2XXA Fracture of nasal bones, initial encounter for closed fracture (principal); E11.9 Type 2 diabetes mellitus without complications; F17.220 Nicotine dependence, chewing tobacco, uncomplicated; F17.290 Nicotine dependence, other tobacco product, uncomplicated; W55.12XA Struck by horse, initial encounter; V80.010A Animal-rider injured by fall from or being thrown from horse in noncollision accident, initial encounter
CPT/HCPCS: 70486; 72070; 72125; 73110; 73590; 99284-25

== ENCOUNTER 2024-03-31 10:25 | Emergency (ER) | payer OTHER ==
[~2024-03-31] VITALS: Ht 177.8 cm; Wt 86.2 kg
[~2024-03-31 10:25] MED LIST changes: +IBU600 MG PO; +INSULIN PUMP; +SEMGLEE (Y100 UNIT/2
[2024-03-31] MEDS ORDERED: PHENYLEPHRINE HCL IV SCH (11:05)
[2024-03-31] MEDS ORDERED: Phenylephrine HCl 10mg/ml 1 ml Vial XX ONE (11:10)
[2024-03-31] MEDS ORDERED: Acetaminophen 500 MG Tab PO ONE (14:05)
[2024-03-31] MEDS ORDERED: NS 1,000 ML IV SCH (14:10)
[2024-03-31 14:37] LABS: Source, Urine Voided
[2024-03-31 14:53] LABS: Appearance, Urine Clear (Clear); Bilirubin, Urine Neg (Neg); Blood, Urine Neg (Neg); Color, Urine Yellow (P-Yellow); Glucose Qualitative, Urine 2+ (Neg); Ketones, Urine 3+ (Neg); Leukocyte Esterase, Urine 1+ (Neg); Nitrite, Urine Neg (Neg); Protein, Urine Neg (Neg); Urobilinogen, Urine 1+ (Normal)
[2024-03-31 14:55] LABS: BASOPHILS ABSOLUTE AUTO 0.03 K/mm3 (0.00-0.23); BASOPHILS PERCENT AUTO 0 % (0-2); EOSINOPHILS ABSOLUTE AUTO 0.03 K/mm3 (0.00-0.68); EOSINOPHILS PERCENT AUTO 0 % (0-6); Hematocrit 37.4 % (37.0-53.0); Hemoglobin 12.7 g/dL (13.5-17.5); IMMATURE GRAN ABSOLUTE AUTO 0.04 K/mm3 (0.00-0.10); IMMATURE GRAN PERCENT AUTO 0 % (0-1); LYMPHOCYTES ABSOLUTE AUTO 1.14 K/mm3 (0.84-5.20); LYMPHOCYTES PERCENT AUTO 10 % (21-46); MONOCYTES ABSOLUTE AUTO 1.18 K/mm3 (0.16-1.47); MONOCYTES PERCENT AUTO 11 % (4-13); Mean Corpuscular HGB 31.4 pg (26.0-34.0); Mean Corpuscular Volume 93 fL (80-100); Mean Platelet Volume 9.5 fL (9.1-12.4); NEUTROPHILS ABSOLUTE AUTO 8.75 K/mm3 (1.96-9.15); NEUTROPHILS PERCENT AUTO 78 % (41-73); Platelet Count 321 K/mm3 (150-400); RDW Coefficient Variation 13.5 % (11.7-14.2); RDW Standard Deviation 45.7 fL (35.1-46.3); Red Blood Cell Count 4.04 M/mm3 (4.30-5.90); White Blood Cell Count 11.17 K/mm3 (4.00-11.30)
[2024-03-31 15:23] LABS: Albumin, Blood 3.3 g/dL (3.4-5.0); Albumin/Globulin Ratio 0.8 (0.8-1.8); Bilirubin, Total 1.1 mg/dL (0.1-1.0); Bun/Creatinine Ratio 18.3 (12.0-20.0); Calcium, Blood 8.6 mg/dL (8.5-10.1); Creatinine, Blood 0.66 mg/dL (0.60-1.20); Globulin, Blood 4.2 g/dL (2.2-4.0); Potassium, Blood 3.6 mmol/L (3.5-5.5); Total Protein, Blood 7.5 g/dL (6.4-8.2)
[2024-03-31 15:35] LABS: Transitional Epithelial Cells Rare /hpf (0-Rare)
[2024-03-31 15:36] LABS: Bacteria Mod /hpf; Red Blood Cells, Urine 0-2 /hpf (0-2); Squamous Epithelial Cells Rare /hpf (Few)
[2024-03-31 16:00] VITALS: BP 152/91
[2024-03-31] MEDS ORDERED: CefTRIAXone Sodium 1,000 MG in NS 100 ML IV ONE (16:00)
== END 2024-03-31 16:33 | disposition home or self-care (01) ==
LOC: ER 10:25
PROVIDERS: Emergency Medicine
DX: N48.33 Priapism, drug-induced (principal); T44.3X5A Adverse effect of other parasympatholytics [anticholinergics and antimuscarinics] and spasmolytics, initial encounter; Z88.1 Allergy status to other antibiotic agents; Z79.899 Other long term (current) drug therapy; Z79.4 Long term (current) use of insulin; F17.290 Nicotine dependence, other tobacco product, uncomplicated
CPT/HCPCS: 36415; 54220; 80053; 81001; 83605; 85025; 87040; 87086; 96361-59; 96374-59; 99284-25; A9270; J0696; J2371; J7030

== ENCOUNTER 2024-06-21 15:17 | Emergency (ER) | payer OTHER ==
[~2024-06-21] VITALS: Ht 177.8 cm; Wt 86.2 kg
[~2024-06-21 15:17] MED LIST changes: +ONDA4ODT MM; +OXAYDO5 M2 PO; +TAMS.4ER PO
[2024-06-21] MEDS ORDERED: Morphine Sulfate 4 MG/1 ML Injection IV ONE (15:25)
[2024-06-21] MEDS ORDERED: CeFAZolin Sodium 2,000 MG in NS 100 ML IV ONE (15:30)
[2024-06-21] MEDS ORDERED: Diphth,Pertuss(Acell),Tet Vac 0.5 ML VIAL IM ONE (15:30)
[2024-06-21] MEDS ORDERED: Ondansetron HCl 2 MG / ML 2ML Vial IV ONE (15:30)
[2024-06-21 15:38] LABS: BASOPHILS ABSOLUTE AUTO 0.02 K/mm3 (0.00-0.23); BASOPHILS PERCENT AUTO 0 % (0-2); EOSINOPHILS PERCENT AUTO 2 % (0-6); Hematocrit 38.6 % (37.0-53.0); Hemoglobin 13.4 g/dL (13.5-17.5); IMMATURE GRAN ABSOLUTE AUTO 0.01 K/mm3 (0.00-0.10); IMMATURE GRAN PERCENT AUTO 0 % (0-1); LYMPHOCYTES PERCENT AUTO 40 % (21-46); MONOCYTES ABSOLUTE AUTO 0.53 K/mm3 (0.16-1.47); MONOCYTES PERCENT AUTO 8 % (4-13); Mean Corpuscular HGB 30.9 pg (26.0-34.0); Mean Corpuscular HGB Conc 34.7 g/dL (31.5-36.5); Mean Corpuscular Volume 89 fL (80-100); Mean Platelet Volume 10.5 fL (9.1-12.4); NEUTROPHILS ABSOLUTE AUTO 3.23 K/mm3 (1.96-9.15); NEUTROPHILS PERCENT AUTO 50 % (41-73); Platelet Count 265 K/mm3 (150-400); RDW Coefficient Variation 12.1 % (11.7-14.2); RDW Standard Deviation 40.3 fL (35.1-46.3); Red Blood Cell Count 4.33 M/mm3 (4.30-5.90); White Blood Cell Count 6.49 K/mm3 (4.00-11.30)
[2024-06-21 15:52] LABS: International Normalized Ratio 0.96; Prothrombin Time Results 10.3 Sec (9.7-11.5)
[2024-06-21 16:01] LABS: Alanine Aminotransfer (ALT/SGP 23 U/L (12-78); Albumin, Blood 3.6 g/dL (3.4-5.0); Albumin/Globulin Ratio 0.9 (0.8-1.8); Alk Phos 98 U/L (50-136); Anion Gap 12 mmol/L (3-11); Aspartate Aminotrans (AST/SGOT 18 U/L (12-37); Bilirubin, Total 0.4 mg/dL (0.1-1.0); Blood Urea Nitrogen 9 mg/dL (8-24); CO2, Blood 25 mmol/L (21-32); Calcium, Blood 9.5 mg/dL (8.5-10.1); Chloride, Blood 106 mmol/L (98-108); Creatinine, Blood 0.82 mg/dL (0.60-1.20); Ethanol (Alcohol), Blood, Med <3 mg/dL; Glomerular Filtration Rate 115 (60-); Glucose, Blood 153 mg/dL (70-99); Potassium, Blood 3.5 mmol/L (3.5-5.5); Sodium, Blood 139 mmol/L (136-145); Total Protein, Blood 7.6 g/dL (6.4-8.2)
[2024-06-21] MEDS ORDERED: HYDROmorphone HCl/Pf 1MG SYR IV ONE ×3 (16:10→21:25)
--- NOTE | 2024-06-21 16:10 | NUR ---
"Spiritual Care Support | Trauma Team Facilitated communication between the nursing staff and girlfriend who was waiting outside. When Pt. returned form CT Scan, this gasoline truck crane operator escorted girlfirend to bedside. Will remain available if needed."
[2024-06-21 16:24] LABS: Source, Urine Clean Catch
[2024-06-21 16:28] LABS: Appearance, Urine Clear (Clear); Bilirubin, Urine Neg (Neg); Blood, Urine Neg (Neg); Color, Urine Yellow (P-Yellow); Glucose Qualitative, Urine Neg (Neg); Ketones, Urine 2+ (Neg); Leukocyte Esterase, Urine Neg (Neg); Nitrite, Urine Neg (Neg); Protein, Urine Neg (Neg); Urobilinogen, Urine NORM (Normal)
[2024-06-21] MEDS ORDERED: FentaNYL Citrate 50 MCG/ML 2 ML Injection IV ONE ×3 (16:35→18:25)
[2024-06-21 16:38] LABS: U Cannabinoids Screen DETECTED; U Opiates Screen DETECTED
[2024-06-21 16:39] LABS: U Amphetamine Screen Not Detected; U Barbituate Screen Not Detected; U Benzodiazapine Screen Not Detected; U Buprenorphine Screen Not Detected; U Cocaine Screen Not Detected; U Methadone Screen Not Detected; U Methamphetamine Screen Not Detected; U Oxycodone Screen Not Detected; U Phencyclidine Screen Not Detected
[2024-06-21] MEDS ORDERED: Tranexamic Acid 100 ML IV SCH (16:55)
[2024-06-21 17:38] LABS: Hematocrit 36.3 % (37.0-53.0); Hemoglobin 12.3 g/dL (13.5-17.5)
[2024-06-21 21:45] VITALS: BP 144/89
== END 2024-06-21 21:44 | disposition short-term general hospital (02) ==
LOC: ER 15:17
PROVIDERS: Emergency Medicine
DX: S02.609A Fracture of mandible, unspecified, initial encounter for closed fracture (principal); S01.511A Laceration without foreign body of lip, initial encounter; S30.1XXA Contusion of abdominal wall, initial encounter; S30.0XXA Contusion of lower back and pelvis, initial encounter; S00.33XA Contusion of nose, initial encounter; Y04.8XXA Assault by other bodily force, initial encounter; Z79.4 Long term (current) use of insulin; Z79.899 Other long term (current) drug therapy; Z88.1 Allergy status to other antibiotic agents
CPT/HCPCS: 12013; 51702; 70450; 70486; 71045; 72125; 80053; 80320; 81003; 83690; 85014; 85018; 85025; 85610; 86850; 86900; 86901; 90471; 90715; 96365-59; 96367-59; 96375-59; 96376-59; 99291-25; G0390; J0690; J1170; J2270; J2405; J3010; J7040

== ENCOUNTER 2024-08-19 01:20 | Inpatient (IN) | payer OTHER ==
[2024-08-19] VITALS (15 sets, daily range): BP systolic 106–158; BP diastolic 66–95
[~2024-08-19] VITALS: Ht 175.3 cm; Wt 85.1 kg
[~2024-08-19 01:20] MED LIST changes: +DULO30 PO; -DULO60 PO; -SEMGLEE (Y100 UNIT/2; +SEMGLEE (Y100 UNIT/2 SC
[2024-08-19] MEDS ORDERED: Tranexamic Acid 100 ML IV ONE (01:35)
[2024-08-19 01:38] LABS: Calcium, Ionized (POC) 1.09 mmol/L (1.10-1.46); Chloride (POC) 110 mmol/L (98-108); Glucose (ISTAT POC) 233 mg/dL (70-99); Hemoglobin (POC) 11.6 g/dL (13.5-17.5); Potassium (POC) 4.1 mmol/L (3.5-5.5); Sodium (POC) 141 mmol/L (135-148); Total CO2 (POC) 20 mmol/L (21-32)
[2024-08-19] MEDS ORDERED: NS 1,000 ML IV SCH ×2 (01:40→05:25)
[2024-08-19 01:51] LABS: BASOPHILS ABSOLUTE AUTO 0.01 K/mm3 (0.00-0.23); BASOPHILS PERCENT AUTO 0 % (0-2); EOSINOPHILS ABSOLUTE AUTO 0.19 K/mm3 (0.00-0.68); EOSINOPHILS PERCENT AUTO 3 % (0-6); Hematocrit 33.9 % (37.0-53.0); Hemoglobin 10.8 g/dL (13.5-17.5); IMMATURE GRAN ABSOLUTE AUTO 0.05 K/mm3 (0.00-0.10); IMMATURE GRAN PERCENT AUTO 1 % (0-1); LYMPHOCYTES ABSOLUTE AUTO 1.69 K/mm3 (0.84-5.20); LYMPHOCYTES PERCENT AUTO 22 % (21-46); MONOCYTES PERCENT AUTO 9 % (4-13); Mean Corpuscular HGB 26.3 pg (26.0-34.0); Mean Corpuscular HGB Conc 31.9 g/dL (31.5-36.5); Mean Corpuscular Volume 83 fL (80-100); Mean Platelet Volume 10.1 fL (9.1-12.4); NEUTROPHILS ABSOLUTE AUTO 4.89 K/mm3 (1.96-9.15); NEUTROPHILS PERCENT AUTO 65 % (41-73); Platelet Count 401 K/mm3 (150-400); RDW Coefficient Variation 14.3 % (11.7-14.2); RDW Standard Deviation 42.8 fL (35.1-46.3); Red Blood Cell Count 4.11 M/mm3 (4.30-5.90); White Blood Cell Count 7.53 K/mm3 (4.00-11.30)
[2024-08-19 01:55] LABS: International Normalized Ratio 0.92; Prothrombin Time Results 9.9 Sec (9.7-11.5)
[2024-08-19 02:16] LABS: Albumin, Blood 3.6 g/dL (3.4-5.0); Albumin/Globulin Ratio 0.9 (0.8-1.8); Bilirubin, Total 0.2 mg/dL (0.1-1.0); Bun/Creatinine Ratio 14.5 (12.0-20.0); Calcium, Blood 9.1 mg/dL (8.5-10.1); Creatinine, Blood 0.76 mg/dL (0.60-1.20); Total Protein, Blood 7.6 g/dL (6.4-8.2)
[2024-08-19] MEDS ORDERED: Bupivacaine 0.5% HCl 5 MG/ML 30MLVIAL ONE (02:36)
[2024-08-19] MEDS ORDERED: propofoL 20 ML IV ONE (02:50)
[2024-08-19] MEDS ORDERED: FentaNYL Citrate 50 MCG/ML 2 ML Injection ONE ×2 (02:51→05:08)
[2024-08-19] MEDS ORDERED: CeFAZolin Sodium 1000 mg Vial ONE (03:14)
--- NOTE | 2024-08-19 03:22 | NUR ---
08/19/24 0322 Addy Nino 2G GIVEN IVP BY RANJANA ESCALERA AT 0316
[2024-08-19] MEDS ORDERED: Rocuronium Bromide 10 MG/ML 5ML Injection IV ONE ×2 (03:29→03:36)
[2024-08-19] MEDS ORDERED: Phenylephrine HCl 100 MCG/ML-NS 10MLSYR (1MG/10ML) ONE (03:29)
[2024-08-19] MEDS ORDERED: Ondansetron HCl 2 MG / ML 2ML Vial ONE (03:55)
[2024-08-19] MEDS ORDERED: Dexamethasone Sod Phos 10 MG/ML 1ML VIAL ONE (03:55)
[2024-08-19] MEDS ORDERED: Sugammadex Sodium 200 MG/2ML SDV (100 MG/ML) ONE (03:56)
[2024-08-19] MEDS ORDERED: Ketamine HCl 100 MG / ML 5ML Vial ONE (03:58)
[2024-08-19] MEDS ORDERED: ePHEDrine Sulfate 50 MG/ML 1ML Injection ONE (04:20)
[2024-08-19] MEDS ORDERED: Bacitracin Ointment 30 GM TOP ONE (05:10)
[2024-08-19] MEDS ORDERED: FLU VACC TS2024-25(6MOS UP)/PF 45 MCG/0.5 ML SYRINGE IM ONE (05:25)
[2024-08-19] MEDS ORDERED: Ondansetron HCl 2 MG / ML 2ML Vial IV PRN (05:25)
[2024-08-19] MEDS ORDERED: Acetaminophen 325 MG TABLET PO PRN (05:30)
[2024-08-19] MEDS ORDERED: Bacitracin Zinc Oint 1GRAM UD Packet TOP ONE (05:35)
[2024-08-19] MEDS ORDERED: HYDROmorphone HCl/Pf 1MG SYR ONE (05:39)
[2024-08-19] MEDS ORDERED: HYDROmorphone 1 MG/ML 30 ML Bag IV PRN (05:55)
[2024-08-19] MEDS ORDERED: Ampicillin Sod/Sulbactam Sod 3 GM in NS 100 ML IV SCH (06:00)
[2024-08-19 06:59] LABS: BASOPHILS ABSOLUTE AUTO 0.01 K/mm3 (0.00-0.23); BASOPHILS PERCENT AUTO 0 % (0-2); EOSINOPHILS PERCENT AUTO 0 % (0-6); Hematocrit 28.5 % (37.0-53.0); Hemoglobin 9.1 g/dL (13.5-17.5); IMMATURE GRAN ABSOLUTE AUTO 0.04 K/mm3 (0.00-0.10); IMMATURE GRAN PERCENT AUTO 0 % (0-1); LYMPHOCYTES ABSOLUTE AUTO 0.42 K/mm3 (0.84-5.20); LYMPHOCYTES PERCENT AUTO 4 % (21-46); MONOCYTES ABSOLUTE AUTO 0.76 K/mm3 (0.16-1.47); MONOCYTES PERCENT AUTO 6 % (4-13); Mean Corpuscular HGB 26.2 pg (26.0-34.0); Mean Corpuscular HGB Conc 31.9 g/dL (31.5-36.5); Mean Corpuscular Volume 82 fL (80-100); Mean Platelet Volume 10.2 fL (9.1-12.4); NEUTROPHILS ABSOLUTE AUTO 10.84 K/mm3 (1.96-9.15); NEUTROPHILS PERCENT AUTO 90 % (41-73); Platelet Count 386 K/mm3 (150-400); RDW Coefficient Variation 14.5 % (11.7-14.2); RDW Standard Deviation 42.9 fL (35.1-46.3); Red Blood Cell Count 3.47 M/mm3 (4.30-5.90); White Blood Cell Count 12.07 K/mm3 (4.00-11.30)
--- NOTE | 2024-08-19 08:08 | NUR ---
0808- NOTIFIED OF BLOOD SUGAR 380, REQUESTED INSULN ORDER.
[2024-08-19] MEDS ORDERED: HYDROmorphone HCl/Pf 1MG SYR IV STA (08:09)
[2024-08-19] MEDS ORDERED: Insulin Human Lispro 100 Units/ML 3ML Syringe SC SCH ×2 (08:15→16:30)
[2024-08-19] MEDS ORDERED: Docusate Sodium 100 MG Cap PO SCH (09:00)
[2024-08-19 09:04] LABS: Source, Urine Foley catheter
[2024-08-19 09:06] LABS: Bilirubin, Urine Neg (Neg); Blood, Urine Neg (Neg); Glucose Qualitative, Urine 4+ (Neg); Ketones, Urine 3+ (Neg); Leukocyte Esterase, Urine Neg (Neg); Nitrite, Urine Neg (Neg); Protein, Urine Neg (Neg); Specific Gravity, Urine 1.015 (1.003-1.022); Urobilinogen, Urine NORM (Normal)
[2024-08-19 09:12] LABS: Appearance, Urine Clear (Clear); Color, Urine Pale Yellow (P-Yellow)
[2024-08-19 11:49] LABS: U Amphetamine Screen Not Detected; U Barbituate Screen Not Detected; U Benzodiazapine Screen Not Detected; U Buprenorphine Screen Not Detected; U Cannabinoids Screen Not Detected; U Cocaine Screen Not Detected; U Methadone Screen Not Detected; U Methamphetamine Screen DETECTED; U Opiates Screen DETECTED; U Oxycodone Screen Not Detected; U Phencyclidine Screen Not Detected
--- NOTE | 2024-08-19 12:20 | NUR ---
1220-PT BLOOD SUGAR WAS 375 FOR AFTERNOON CHECKS, THIS RN GAVE 5 UNITS. AFTER MEDICATING, THIS RN CALLED MD TO NOTIFY ABOUT BLOOD SUGAR, TELEPHONE ORDER TO ADMINISTER ADDITIONAL 5 UNITS WAS RECEIVED.
[2024-08-19] MEDS ORDERED: Insulin Human Lispro 100 Units/ML 3ML Syringe SC ONE (12:35)
--- NOTE | 2024-08-19 14:27 | NUR ---
1425-PT REPORTED FEELING "FUNNY", BLOOD SUGAR CHECKED 440, MD NOTIFIED AND THIS RN WAS NOT GIVEN ANY INSTRUCTIONS/ORDERS IN FEAR OF OVERCORRECTING BLOOD SUGAR.
--- NOTE | 2024-08-19 16:28 | NUR ---
SHIFT SUMMARY PT AOX4, ABLE TO MAKE NEEDS KNOWN, COOPERATIVE. RELEASED FROM 1:1 sitter today. INDWELLING CATHETER PLACED WITH EXCESSIVE URINE OUTPUT (3000ML>), MISSION MANAGER PUMP ACTIVE, ON NS 175ML/HR, USING COMMODE FOR BM. MARCELO DRAIN STILL IN PLACE AND WORKING APPROPRIATELY. BLOOD SUGARS HAVE BEEN HIGH, WAS NOTIFIED. BED IN LOWEST POSITION, CALL LIGHT WITHIN REACH.
--- NOTE | 2024-08-19 17:29 | NUR ---
1725- NOTIFIED OF PT BLOOD SUGAR OF 424 AND THIS RN MEDICATED WITH 10 UNITS ON MEDIUM SLIDING SCALE.
[2024-08-19] MEDS ORDERED: Nicotine 21 MG PATCH TOP SCH (18:10)
[2024-08-19] MEDS ORDERED: Miconazole Nitrate 2% 85 GM PWD TOP SCH (21:00)
[2024-08-19] MEDS ORDERED: Insulin Glargine-Yfgn 100 Unit/mL 3 ML SYR SC SCH (21:00)
[2024-08-19] MEDS ORDERED: NS 250 ML IV PRN (21:55)
[2024-08-20 02:15] VITALS: BP 144/89
[2024-08-20 07:08] VITALS: BP 145/92
[2024-08-20 07:18] LABS: BASOPHILS ABSOLUTE AUTO 0.01 K/mm3 (0.00-0.23); BASOPHILS PERCENT AUTO 0 % (0-2); EOSINOPHILS ABSOLUTE AUTO 0.04 K/mm3 (0.00-0.68); EOSINOPHILS PERCENT AUTO 0 % (0-6); Hematocrit 25.1 % (37.0-53.0); Hemoglobin 7.8 g/dL (13.5-17.5); IMMATURE GRAN ABSOLUTE AUTO 0.05 K/mm3 (0.00-0.10); IMMATURE GRAN PERCENT AUTO 1 % (0-1); LYMPHOCYTES ABSOLUTE AUTO 1.93 K/mm3 (0.84-5.20); LYMPHOCYTES PERCENT AUTO 19 % (21-46); MONOCYTES PERCENT AUTO 9 % (4-13); Mean Corpuscular HGB 25.9 pg (26.0-34.0); Mean Corpuscular HGB Conc 31.1 g/dL (31.5-36.5); Mean Corpuscular Volume 83 fL (80-100); Mean Platelet Volume 9.8 fL (9.1-12.4); NEUTROPHILS ABSOLUTE AUTO 7.51 K/mm3 (1.96-9.15); NEUTROPHILS PERCENT AUTO 72 % (41-73); Platelet Count 342 K/mm3 (150-400); RDW Coefficient Variation 14.5 % (11.7-14.2); RDW Standard Deviation 43.8 fL (35.1-46.3); Red Blood Cell Count 3.01 M/mm3 (4.30-5.90); White Blood Cell Count 10.44 K/mm3 (4.00-11.30)
[2024-08-20 07:38] LABS: Bun/Creatinine Ratio 20.1 (12.0-20.0); Calcium, Blood 8.9 mg/dL (8.5-10.1); Creatinine, Blood 0.75 mg/dL (0.60-1.20); Potassium, Blood 4.3 mmol/L (3.5-5.5)
[2024-08-20] MEDS ORDERED: Enoxaparin 40 MG/0.4 ML SYR SC SCH (08:00)
--- NOTE | 2024-08-20 08:10 | NUR ---
SHIFT SUMMARY PT IS A&OX4. PT AWAKE THIS ENTIRE SHIFT, RESTLESS, PICKING AT EVERYTHING. VSS ON RA. BLOOD SUGARS REMAIN ELEVATED. C/O PAIN IN ABD, CLEANING HANDYMAN DILAUDID INFUSING. OFTEN ATTEMPTING TO EXCEDE HIS HOURLY LIMIT. MARCELO DRESSING INTACT, SMALL AMOUNT OF DRIED SANGUINEOUS DRAINAGE. TOLERATING A CLEAR LIQUID/CONS CARB DIET, NO N/V. SBA TO BSC. PT HAVING LARGE AMOUNTS OF CLEAR, LIGHT YELLOW URINE VIA DIXON CATHETER. NO BM THIS SHIFT. PT STATES HE DIGITAL STIMULATES HIMSELF 2-3 TIMES A DAY FOR BM'S. BED IN LOWEST POSITION, CALL LIGHT WITHIN REACH. PT NOT USING HIS CALL LIGHT APPROPRIATELY AND THIS RN FOUND HIM AT THE SINK. BED ALARM NOW SET FOR PT'S SAFETY.
[2024-08-20 15:07] VITALS: BP 148/91
[2024-08-20] MEDS ORDERED: Insulin Human Lispro 100 Units/ML 3ML Syringe SC SCH ×2 (17:00)
--- NOTE | 2024-08-20 18:35 | NUR ---
SHIFT SUMMARY PT CONT LEVEL OF CARE. PT IS A&O X4 AND SBA TO BEDSIDE COMMODE. PT CONT WITH DIXON CATH IN PLACE AND DRAINING YELLOW URINE. PT VOICED CONCERN OF WANTING TO SPEAK WITH SOMEONE ABOUT SUICIDAL THOUGHTS DR WILLOUGHBY NOTIFIED AND ORDER A CONSULT WITH PSYCHIATRY WHO HAS BEEN CALLED AND STATED HE WOULD NOT BE ABLE TO SEE PT TODAY BUT WOULD TRY AND SEE PT TOMORROW. PT HAS AN ORDER TO USE HIS HOME INSULIN PUMP BUT IS NOT UTILIZING AT THIS TIME D/T INSULIN PUMP IS RAN OFF HIS PHONE AND PT DOESNT HAS HIS PHONE. PT MOM TOOK HOME HIS INSULIN PUMP AND INSULIN. PT CONT TO USE VIDEO RECORDER MECHANIC PUMP. NEW ORDER RECIEVED THIS SHIFT FOR PT TO ADVANCE DIET TOLERATED PER DR LEZAMA. PT IS NOW ON A CONSISTENT CARB DIET.
[2024-08-20 20:56] VITALS: BP 153/92
[2024-08-21 03:04] VITALS: BP 160/90
--- NOTE | 2024-08-21 03:06 | NUR ---
HYDRAULIC LIFT DRIVER SUMMARY VSS. HS ACCUCHECK 141. DRESSING OF ABD, CDI. BEDREST ENCOURAGED TO PREVENT ABD SURGICAL INCISION FROM OPENING. ALERT AND OREINTED. IV TRANSIT SURVEY WORKER OF DILAUDID INFUSING PER MAR - SEE MAR. CARTRIDGE REPLACED DUE TO PREVIOUS ONE EMPTY. ABLE TO REPOSITION SELF IN BED WITHOUT ASSIST, GETS OOB TO REARRANGE BEDDING. HAS BEEN RESTING QUIETLY WITH INTERMITTENT EPISODES OF WAKEFULNESS - WATCHING TV. CALL LIGHT IN REACH, RAILS UP X 2 AND BED IN LOW POSITION FOR SAFETY. IV ANTIBIOTICS INFUSING Q 6 HR ORDERED. WILL CONTINUE TO MONITOR
[2024-08-21 05:48] LABS: BASOPHILS ABSOLUTE AUTO 0.01 K/mm3 (0.00-0.23); BASOPHILS PERCENT AUTO 0 % (0-2); EOSINOPHILS ABSOLUTE AUTO 0.16 K/mm3 (0.00-0.68); EOSINOPHILS PERCENT AUTO 2 % (0-6); Hematocrit 24.8 % (37.0-53.0); IMMATURE GRAN ABSOLUTE AUTO 0.02 K/mm3 (0.00-0.10); IMMATURE GRAN PERCENT AUTO 0 % (0-1); LYMPHOCYTES ABSOLUTE AUTO 2.12 K/mm3 (0.84-5.20); LYMPHOCYTES PERCENT AUTO 27 % (21-46); MONOCYTES ABSOLUTE AUTO 0.74 K/mm3 (0.16-1.47); MONOCYTES PERCENT AUTO 9 % (4-13); Mean Corpuscular HGB 25.9 pg (26.0-34.0); Mean Corpuscular HGB Conc 32.3 g/dL (31.5-36.5); Mean Corpuscular Volume 80 fL (80-100); Mean Platelet Volume 9.8 fL (9.1-12.4); NEUTROPHILS ABSOLUTE AUTO 4.86 K/mm3 (1.96-9.15); NEUTROPHILS PERCENT AUTO 61 % (41-73); Platelet Count 362 K/mm3 (150-400); RDW Coefficient Variation 14.6 % (11.7-14.2); RDW Standard Deviation 42.7 fL (35.1-46.3); Red Blood Cell Count 3.09 M/mm3 (4.30-5.90); White Blood Cell Count 7.91 K/mm3 (4.00-11.30)
[2024-08-21 06:16] LABS: Bun/Creatinine Ratio 12.7 (12.0-20.0); Calcium, Blood 9.3 mg/dL (8.5-10.1); Creatinine, Blood 0.63 mg/dL (0.60-1.20); Potassium, Blood 3.9 mmol/L (3.5-5.5)
[2024-08-21 07:24] VITALS: BP 139/84
--- NOTE | 2024-08-21 14:05 | NUR ---
Pt. is awake in bed when he welcomes my visit. Pt. is pleasant, and quickly verbalizes that he is a man of giovanny. Facilitate a life review and listen with empahty and a calming presence. Pt. displays evidence of awareness and engagement. Pt. can verbalize in detail his understanding of the care plan moving forward. Prayed with the Pt. Pt. verbalized gratitude for the spiritual care visit and welcomed this superintendent production to return.
[2024-08-21] MEDS ORDERED: LISI5 PO (14:38)
[2024-08-21 16:08] VITALS: BP 143/86
--- NOTE | 2024-08-21 17:47 | NUR ---
SHIFT SUMMARY PT A&OX4, VSS, AMB W/ SBA, TOLERATING PO, VOIDING, AND PAIN MANAGED W/ JUNIOR DATA ANALYST. PT TACHY IN AM, BUT ASYMPTOMATIC AND TRENDED DOWN TO WNL T/O SHIFT. PSYCH CONSULT COMPLETE AND EMAR UPDATED, SEE CONSULT NOTE. ROUNDED ON PT AND PLAN TO TRANSITION TO PO PAIN MEDS. NO OTHER ACUTE CHANGES. CALL LIGHT WITHIN REACH AND PT ABLE TO MAKE NEEDS KNOWN.
[2024-08-21 20:17] VITALS: BP 141/77
[2024-08-22 02:29] VITALS: BP 133/83
--- NOTE | 2024-08-22 05:04 | NUR ---
BATCH MIXER OPERATOR SUMMARY VSS. ALERT AND ORIENTED. BOAT DESIGNER DILAUDID PUMP INFUSING - SEE MAR FOR DETAILS. UP AD KARAN, MULTIPLE ATTEMPTS TO REDIRECT HE CONTINUED TO TANGLE LINES AND PULLED OUT ONE IV. ANOTHER PLACED. ABD DRESSING INTACT. HAS BEEN RESTING AT INTERVALS, RESTING QUIETLY AT THIS TIME. CALL LIGHT IN REACH, RAILS UP X 2 AND BED IN LOW POSITION FOR SAFETY. ABLE TO REPOSITION SELF IN BED FOR COMFORT AND SKIN MAINTENANCE. DIXON DRAINING PUJA. WILL CONTINUE TO MONITOR
[2024-08-22 07:14] VITALS: BP 102/68
[2024-08-22 07:16] VITALS: BP 118/77
[2024-08-22] MEDS ORDERED: HYDROcodone 5-APAP 325 TAB PO PRN (07:35)
[2024-08-22] MEDS ORDERED: Polyethylene Glycol 3350 17 gm PO PRN (08:00)
[2024-08-22] MEDS ORDERED: Polyethylene Glycol 3350 17 gm PO ONE (08:00)
[2024-08-22] MEDS ORDERED: DULoxetine HCL 60 MG Capsule DR PO SCH (09:00)
[2024-08-22] MEDS ORDERED: Venlafaxine HCl 75 MG CapCR PO SCH (09:00)
[2024-08-22] MEDS ORDERED: Gabapentin 300 MG Cap PO SCH (14:00)
[2024-08-22 16:32] VITALS: BP 180/100
[2024-08-22] MEDS ORDERED: HYDROmorphone HCl/Pf 1MG SYR IV PRN (16:35)
[2024-08-22 17:27] VITALS: BP 149/98
[2024-08-22] MEDS ORDERED: Nicotine Polacrilex 2 MG Gum PO PRN (18:30)
[2024-08-22 19:12] VITALS: BP 171/105
--- NOTE | 2024-08-22 19:54 | NUR ---
SHIFT SUMMARY- PT HAS IMPROVED COGNITIVELY T/O THE DAY. INHALATION THERAPY AIDE WAS DC'D AT THE END OF SHIFT AND THE PT GOT UP AND WALKED TO THE BATHROOM TO DO A SPOUNGE BATH WHILE LOOKING IN THE MIRROR. PT IS BEGINNING TO FEEL LIKE HE IS READY TO GO HOME. HE HAD MULTIPLE FAMILY VISITORS TODAY. PT IN BED AT THE TIME OF REPORT. DIXON CATH IN PLACE. BG WAS LOW THIS MORNING, HE BECAME AGITATED WITH STAFF AND WAS UNWILLING TO TAKE ALL OF HIS AM MEDS. DR WILLOUGHBY IS AWARE. PT DID NOT RECIEVE INSULIN D/T LACK OF APPETITE AND LOW BG AT BREAKFAST, HE DID NOT EAT LUNCH, (MAYBE HE ATE SOMETING PROVIDED BY A VISITOR) SO NO COVERAGE WAS PROVIDED. PT BG AT DINNER TIME WAS 313, CALLED DR WILLOUGHBY SHE IS AWARE ONLY CARB COUNT DOSE GIVEN 5 UNITS. PT URINE OUTPUT IS EXTREMELY HIGH. PT STRAIGHT CATHS AT HOME, BUT WAS SO GROGGY HE WOULD NOT BE ABLE TO DO SO NOW. AWARE AND ORDERED NO DC ON THE DIXON AT THIS TIME (PER DR MENDES). PT IN BED, CALL LIGHT IN REACH NO S&S OF DISTRESS NOTED AT THE TIME OF BEDSIDE REPORT.
[2024-08-23 03:51] VITALS: BP 131/87
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
[2024-08-23 07:30] VITALS: BP 143/84
[2024-08-23 15:43] VITALS: BP 138/90
[2024-08-23] MEDS ORDERED: Insulin Human Lispro 100 Units/ML 3ML Syringe SC SCH (16:30)
--- NOTE | 2024-08-23 18:12 | NUR ---
ALERT AND ORIENTED X4, CLEARLY MAKES NEEDS KNOWN, POOR APPETITE, VERY KNOWLEDGABLE OF HIS DIABETES INSULIN COVERAGE, PARENTS IN ROOM NOW, MEDICATED FOR PAIN WITH NORCOX2, S/S COVERAGE PULS CARB CONTROL FOR INSULIN COVERAGE, CALL LIGHT WITH IN REACH, WILL RELAY TO PM RN
[2024-08-23 19:33] VITALS: BP 165/99
[2024-08-24 02:16] VITALS: BP 147/85
--- NOTE | 2024-08-24 05:01 | NUR ---
PT HAD VISITORS AT BEGINING OF SHIFT, WENT WELL. AAOX4. SLEPT OFF AND ON THROUGHOUT SHIFT. PRN MEDICATIN FOR PAIN GIVEN Q6 PER REQUEST. PT AMBULATED AROUND ROOM AND ENCOURAGED TO USE WALKER WITH WALKER. ADMIN EXTRA 4 U INSULIN FOR COVERAGE WITH A LATE DINNER. ENCOURAGE PT TO DRINK MORE WATER, NOT INTERESTED. PT FEELS LIKE HE MAY BE READY TO GO [place] TODAY, LISTENED AND OFFERED SUPPORT
[2024-08-24 05:48] LABS: Hematocrit 25.5 % (37.0-53.0); Hemoglobin 8.2 g/dL (13.5-17.5); Mean Corpuscular HGB 25.2 pg (26.0-34.0); Mean Corpuscular HGB Conc 32.2 g/dL (31.5-36.5); Mean Corpuscular Volume 79 fL (80-100); Platelet Count 381 K/mm3 (150-400); RDW Coefficient Variation 14.1 % (11.7-14.2); RDW Standard Deviation 40.2 fL (35.1-46.3); Red Blood Cell Count 3.25 M/mm3 (4.30-5.90); White Blood Cell Count 4.18 K/mm3 (4.00-11.30)
[2024-08-24 06:25] LABS: Albumin, Blood 2.8 g/dL (3.4-5.0); Anion Gap 11 mmol/L (3-11); Blood Urea Nitrogen 14 mg/dL (8-24); Bun/Creatinine Ratio 21.6 (12.0-20.0); CO2, Blood 24 mmol/L (21-32); Calcium, Blood 8.9 mg/dL (8.5-10.1); Chloride, Blood 101 mmol/L (98-108); Creatinine, Blood 0.65 mg/dL (0.60-1.20); Glomerular Filtration Rate 124 (60-); Glucose, Blood 310 mg/dL (70-99); Potassium, Blood 3.8 mmol/L (3.5-5.5); Sodium, Blood 132 mmol/L (136-145)
[2024-08-24 07:36] VITALS: BP 140/86
[2024-08-24] MEDS ORDERED: Lisinopril 5 MG Tab PO SCH (09:00)
[2024-08-24] MEDS ORDERED: Norco 5-325 Ta1 EACH PO (13:04)
--- NOTE | 2024-08-24 13:21 | NUR ---
DISCHARGE SUMMARY PATIENT A/OX4, ABLE TO MAKE NEEDS KNOWN. PLEASANT AND COOPERATIVE WITH STAFF. DENIES ANY SUICIDAL IDEATION, MOTHER AT BEDSIDE DURING DISCHARGE AND INFORMED PATIENT OF HIS FAMILY MEMBERS FILING RESTARINING ORDER. CASTING MACHINE OPERATOR AUTOMATIC CALLED AT MOTHER'S REQUEST, [place] AT BEDSIDE TO DISCUSS PATIENT NEEDS WITH HIS MOTHER. DISCHAREG INSTRUCTIONS DISCUSSED AND BOTH PATIENT AND MOTHER AGREEABLE TO ATTEND ALL HOSPITAL FOLLOW UP APPOINTMENTS INCLUDING THERAPY AND POST SURGICAL APPOINTMENTS. PATIENT SENT HOME WITH HARD SCRIPT FOR PAIN MEDICATION AND ALL QUESTIONS ANSWERED AT TIME OF DISCHARGE. NO OTHER CONCERNS. PATIENT REFUSED NEED FOR WHEELCHAIR ASSISTANCE OUT OF FACILITY AND LEFT VIA HIS MOTHER'S VEHICLE.
== END 2024-08-24 13:20 | disposition home or self-care (01) | DRG 329 ==
LOC: ER 01:20 → SURS 01:46 → MEDS 01:46
PROVIDERS: Internal Medicine; Student in an Organized Health Care Education/Training Program; ADMIT Surgery
PROC: 0DQL0ZZ Repair Transverse Colon, Open Approach (ICD-10-PCS; 2024-08-19)
PROC: 0JQ10ZZ Repair Face Subcutaneous Tissue and Fascia, Open Approach (ICD-10-PCS; 2024-08-19)
PROC: 0WQF0ZZ Repair Abdominal Wall, Open Approach (ICD-10-PCS; 2024-08-19)
PROC: 0T9B70Z Drainage of Bladder with Drainage Device, Via Natural or Artificial Opening (ICD-10-PCS; 2024-08-19)
PROC: 30233N1 Transfusion of Nonautologous Red Blood Cells into Peripheral Vein, Percutaneous Approach (ICD-10-PCS; principal; 2024-08-19 10:15)
DX: S36.531A Laceration of transverse colon, initial encounter (principal); S31.611A Laceration without foreign body of abdominal wall, left upper quadrant with penetration into peritoneal cavity, initial encounter; D62 Acute posthemorrhagic anemia; F33.3 Major depressive disorder, recurrent, severe with psychotic symptoms; R45.851 Suicidal ideations; S36.428A Contusion of other part of small intestine, initial encounter; S36.892A Contusion of other intra-abdominal organs, initial encounter; S36.112A Contusion of liver, initial encounter; S01.81XA Laceration without foreign body of other part of head, initial encounter; S31.115A Laceration without foreign body of abdominal wall, periumbilic region without penetration into peritoneal cavity, initial encounter; S01.111A Laceration without foreign body of right eyelid and periocular area, initial encounter; X99.1XXA Assault by knife, initial encounter; F17.290 Nicotine dependence, other tobacco product, uncomplicated; N31.9 Neuromuscular dysfunction of bladder, unspecified; E10.40 Type 1 diabetes mellitus with diabetic neuropathy, unspecified; K43.9 Ventral hernia without obstruction or gangrene; F15.10 Other stimulant abuse, uncomplicated; E10.43 Type 1 diabetes mellitus with diabetic autonomic (poly)neuropathy; K31.84 Gastroparesis; K59.00 Constipation, unspecified; K42.9 Umbilical hernia without obstruction or gangrene; F11.10 Opioid abuse, uncomplicated; F10.90 Alcohol use, unspecified, uncomplicated; Z96.41 Presence of insulin pump (external) (internal); Z88.1 Allergy status to other antibiotic agents; Z79.85 Long-term (current) use of injectable non-insulin antidiabetic drugs; Z79.899 Other long term (current) drug therapy; Z79.891 Long term (current) use of opiate analgesic; Z79.4 Long term (current) use of insulin; Z98.890 Other specified postprocedural states; Z86.31 Personal history of diabetic foot ulcer; Z89.421 Acquired absence of other right toe(s); Z87.440 Personal history of urinary (tract) infections; Z28.21 Immunization not carried out because of patient refusal; Z87.828 Personal history of other (healed) physical injury and trauma
CPT/HCPCS: 36415; 70450; 71045; 71260; 72125; 74177; 80047; 80048; 80053; 80069; 81003; 82947; 85014; 85025; 85027; 85610; 86850; 86900; 86901; 86923; 93005; 93010; 96374-59; 99285-25; A9270; J0295; J0690; J1100; J1171; J1650; J1815; J2371; J2405; J2704; J3010; J7030; J7050; Q9967

== ENCOUNTER → 2024-10-17 | Outpatient (CLI) | payer OTHER ==
[~2024-10-17] MED LIST changes: +LISI5 PO
[2024-10-18 13:21] LABS: Chlamydia Trachomatis Urine NOT DETECTED (NOT DETECT); Neisseria Gonorrhoea Urine NOT DETECTED (NOT DETECT)
== END ==
LOC: LAB 17:01 → LAB SHORT 17:01
PROVIDERS: Student in an Organized Health Care Education/Training Program
DX: Z20.2 Contact with and (suspected) exposure to infections with a predominantly sexual mode of transmission (principal)
CPT/HCPCS: 87491; 87591

== ENCOUNTER → 2025-01-17 | Outpatient (CLI) | payer OTHER | LOC: LAB SHORT 10:17 → LAB 10:17 | DX: L97.522 Non-pressure chronic ulcer of other part of left foot with fat layer exposed (principal) | CPT/HCPCS: 87070; 87077; 87147; 87186; 87205 ==

== ENCOUNTER 2025-02-25 10:33 | Observation (INO) | payer OTHER ==
[~2025-02-25] VITALS: Ht 177.8 cm; Wt 77.1 kg
[2025-02-25 10:52] LABS: BASOPHILS PERCENT AUTO 0 % (0-2); EOSINOPHILS PERCENT AUTO 0 % (0-6); Hemoglobin 9.2 g/dL (13.5-17.5); IMMATURE GRAN ABSOLUTE AUTO 0.03 K/mm3 (0.00-0.10); IMMATURE GRAN PERCENT AUTO 0 % (0-1); LYMPHOCYTES ABSOLUTE AUTO 0.36 K/mm3 (0.84-5.20); LYMPHOCYTES PERCENT AUTO 4 % (21-46); MONOCYTES ABSOLUTE AUTO 0.37 K/mm3 (0.16-1.47); MONOCYTES PERCENT AUTO 4 % (4-13); Mean Corpuscular HGB 22.1 pg (26.0-34.0); Mean Corpuscular HGB Conc 31.7 g/dL (31.5-36.5); Mean Corpuscular Volume 70 fL (80-100); Mean Platelet Volume 9.7 fL (9.1-12.4); NEUTROPHILS ABSOLUTE AUTO 9.24 K/mm3 (1.96-9.15); NEUTROPHILS PERCENT AUTO 92 % (41-73); Platelet Count 458 K/mm3 (150-400); RDW Coefficient Variation 20.3 % (11.7-14.2); RDW Standard Deviation 49.8 fL (35.1-46.3); Red Blood Cell Count 4.16 M/mm3 (4.30-5.90)
[2025-02-25 11:08] LABS: International Normalized Ratio 0.99; Prothrombin Time Results 10.9 Sec (9.7-11.5)
[2025-02-25 11:29] LABS: Ethanol (Alcohol), Blood, Med <3 mg/dL
[2025-02-25 11:30] LABS: Alanine Aminotransfer (ALT/SGP 34 U/L (12-78); Albumin/Globulin Ratio 1.2 (0.8-1.8); Alk Phos 87 U/L (50-136); Anion Gap 12 mmol/L (3-11); Aspartate Aminotrans (AST/SGOT 25 U/L (12-37); Bilirubin, Total 0.3 mg/dL (0.1-1.0); Blood Urea Nitrogen 10 mg/dL (8-24); Bun/Creatinine Ratio 14.7 (12.0-20.0); CO2, Blood 23 mmol/L (21-32); Calcium, Blood 8.9 mg/dL (8.5-10.1); Chloride, Blood 101 mmol/L (98-108); Creatinine, Blood 0.68 mg/dL (0.60-1.20); Globulin, Blood 3.4 g/dL (2.2-4.0); Glomerular Filtration Rate 121 (60-); Glucose, Blood 472 mg/dL (70-99); Potassium, Blood 4.6 mmol/L (3.5-5.5); Salicylate <1.7 mg/dL (2.8-20.0); Sodium, Blood 131 mmol/L (136-145); Total Protein, Blood 7.4 g/dL (6.4-8.2)
[2025-02-25 11:31] LABS: Acetaminophen, Random <2.0 ug/mL (10.0-30.0)
[2025-02-25 11:47] LABS: Source, Urine Voided
[2025-02-25] MEDS ORDERED: INSULIN AS100 UNIT/7 SC (11:48)
[2025-02-25 11:51] LABS: Bilirubin, Urine Neg (Neg); Blood, Urine Neg (Neg); Glucose Qualitative, Urine 4+ (Neg); Ketones, Urine 2+ (Neg); Leukocyte Esterase, Urine Neg (Neg); Nitrite, Urine Neg (Neg); Protein, Urine Neg (Neg); Specific Gravity, Urine 1.015 (1.003-1.022); Urobilinogen, Urine NORM (Normal)
[2025-02-25 11:53] LABS: Appearance, Urine Clear (Clear); Color, Urine Pale Yellow (P-Yellow)
[2025-02-25 12:02] LABS: U Amphetamine Screen Not Detected; U Barbituate Screen Not Detected; U Benzodiazapine Screen Not Detected; U Buprenorphine Screen Not Detected; U Cannabinoids Screen Not Detected; U Cocaine Screen Not Detected; U Methadone Screen Not Detected; U Methamphetamine Screen Not Detected; U Opiates Screen Not Detected; U Oxycodone Screen Not Detected; U Phencyclidine Screen Not Detected
[2025-02-25] MEDS ORDERED: Ketorolac Tromethamine 30mg Vial IV ONE (12:20)
[2025-02-25] MEDS ORDERED: Insulin Regular 100 Unit/ML 1ML Dose IV ONE (13:20)
[2025-02-25] MEDS ORDERED: Ibuprofen 600 MG Tab PO PRN (17:20)
[2025-02-25] MEDS ORDERED: Ondansetron HCl 2 MG / ML 2ML Vial IV PRN (17:25)
[2025-02-25] MEDS ORDERED: Insulin Glargine-Yfgn 100 Unit/mL 3 ML SYR SC SCH (18:00)
[2025-02-25] MEDS ORDERED: Lactated Ringer's 1,000 ML IV SCH (19:15)
[2025-02-25] MEDS ORDERED: LISI5 PO (20:18)
[2025-02-25] MEDS ORDERED: CYMBALTA30 M2 PO (20:18)
[2025-02-25] MEDS ORDERED: MUPIROCIN2210 TOP (20:19)
[2025-02-25] MEDS ORDERED: OMNIPOD (20:20)
[2025-02-25] MEDS ORDERED: MOBIC15 MG PO (20:24)
[2025-02-25] MEDS ORDERED: SULFAMETHOXAZO1 EAC1 PO (20:24)
[2025-02-25] MEDS ORDERED: OXYC5 PO (20:26)
--- NOTE | 2025-02-25 20:37 | NUR ---
REVIEWED INFO TO HELP WITH CURRENT ADMISSTION
[2025-02-25] MEDS ORDERED: Gabapentin 300 MG Cap PO SCH (21:00)
[2025-02-25] MEDS ORDERED: Docusate Sodium 100 MG Cap PO SCH (21:00)
[2025-02-25] MEDS ORDERED: Insulin Regular 100 UNIT/ML 10ML Vial SC SCH (21:00)
[2025-02-25 21:28] VITALS: BP 140/87
[2025-02-26] MEDS ORDERED: Nicotine 21 MG PATCH TOP SCH (02:05)
[2025-02-26 05:16] VITALS: BP 143/87
[2025-02-26 05:30] LABS: BASOPHILS PERCENT AUTO 0 % (0-2); EOSINOPHILS ABSOLUTE AUTO 0.33 K/mm3 (0.00-0.68); EOSINOPHILS PERCENT AUTO 5 % (0-6); Hematocrit 31.6 % (37.0-53.0); Hemoglobin 9.6 g/dL (13.5-17.5); IMMATURE GRAN ABSOLUTE AUTO 0.01 K/mm3 (0.00-0.10); IMMATURE GRAN PERCENT AUTO 0 % (0-1); LYMPHOCYTES ABSOLUTE AUTO 2.49 K/mm3 (0.84-5.20); LYMPHOCYTES PERCENT AUTO 35 % (21-46); MONOCYTES ABSOLUTE AUTO 0.83 K/mm3 (0.16-1.47); MONOCYTES PERCENT AUTO 12 % (4-13); Mean Corpuscular HGB 21.6 pg (26.0-34.0); Mean Corpuscular HGB Conc 30.4 g/dL (31.5-36.5); Mean Corpuscular Volume 71 fL (80-100); NEUTROPHILS ABSOLUTE AUTO 3.48 K/mm3 (1.96-9.15); NEUTROPHILS PERCENT AUTO 49 % (41-73); Platelet Count 492 K/mm3 (150-400); RDW Coefficient Variation 20.4 % (11.7-14.2); Red Blood Cell Count 4.44 M/mm3 (4.30-5.90); White Blood Cell Count 7.14 K/mm3 (4.00-11.30)
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
[2025-02-26 06:30] LABS: Albumin, Blood 3.8 g/dL (3.4-5.0); Albumin/Globulin Ratio 1.1 (0.8-1.8); Bilirubin, Total 0.2 mg/dL (0.1-1.0); Bun/Creatinine Ratio 11.4 (12.0-20.0); Calcium, Blood 8.8 mg/dL (8.5-10.1); Creatinine, Blood 0.87 mg/dL (0.60-1.20); Globulin, Blood 3.4 g/dL (2.2-4.0); Total Protein, Blood 7.2 g/dL (6.4-8.2)
[2025-02-26 07:38] VITALS: BP 141/83
[2025-02-26] MEDS ORDERED: Lisinopril 5 MG Tab PO SCH (09:00)
[2025-02-26] MEDS ORDERED: DULoxetine HCL 60 MG Capsule DR PO SCH (09:00)
[2025-02-26] MEDS ORDERED: Tamsulosin HCl 0.4 MG Cap PO SCH (09:00)
[2025-02-26] MEDS ORDERED: Enoxaparin 40 MG/0.4 ML SYR SC SCH (09:00)
[2025-02-26] MEDS ORDERED: IBUP600 PO (12:31)
[2025-02-26] MEDS ORDERED: BASAGLAR K100 UNIT/1 SC (12:32)
[2025-02-26] MEDS ORDERED: TAMS.4ER PO (12:33)
--- NOTE | 2025-02-26 15:42 | NUR ---
DR ALEX JOHNSON GAVE A VERBAL ORDER FOR SERPQUEL 50MG 1 AT HS FOR DISCHARGE. CALLED MEDICATION TO [facility]
[2025-02-26] MEDS ORDERED: Seroquel Xr50 MG PO (15:47)
--- NOTE | 2025-02-26 16:06 | NUR ---
DISCHARGE HOME. PT ESCORTED BY STAFF TO AWAITING CAR. PT TALKED WITH DR JOHNSON ABOUT SLEEPLESSNESS. DIXON REMOVED. PT TOLERATED WELL. NO IV TO REMOVE. CARE ONGOING
[2025-02-26] MEDS ORDERED: QUEtiapine Fumarate 50 MG TAB PO SCH (21:00)
== END 2025-02-26 15:57 | disposition home or self-care (01) ==
LOC: ER 10:33 → ERHOLD 10:34 → MEDS 10:34
PROVIDERS: Emergency Medicine; ADMIT Internal Medicine
DX: S21.139A Puncture wound without foreign body of unspecified front wall of thorax without penetration into thoracic cavity, initial encounter (principal); E10.65 Type 1 diabetes mellitus with hyperglycemia; N31.9 Neuromuscular dysfunction of bladder, unspecified; Z88.8 Allergy status to other drugs, medicaments and biological substances; Z79.4 Long term (current) use of insulin; Z79.899 Other long term (current) drug therapy; W26.0XXA Contact with knife, initial encounter
CPT/HCPCS: 12001; 36415; 51701; 71045; 71260; 74177; 80053; 80320; 81003; 82947; 83690; 85025; 85610; 93005; 93010; 96372; 96374; 96374-59; 99285-25; A9270; G0378; G0480; J1650; J1815; J1885; J7120; Q9967